=== PATIENT | male | born 1945 | race Caucasian/White ===

== ENCOUNTER 2017-01-05 10:48 | Inpatient (IN) ==
[2017-01-05] MEDS ORDERED: *HR* HYDROmorphone (PF) 1 MG/ML SYRINGE IVP ONE (11:02)
--- NOTE | 2017-01-05 11:06 | Emergency Department Note ---
Disposition Clinical Impression: Fall Qualifiers: Encounter type: initial encounter Qualified Code(s): W19.XXXA - Unspecified fall, initial encounter Cellulitis Qualifiers: Site of cellulitis: buttock Qualified Code(s): L03.317 - Cellulitis of buttock Ulcer of skin Qualifiers: Non-pressure ulcer stage: unspecified non-pressure ulcer stage Qualified Code(s ): L98.499 - Non-pressure chronic ulcer of skin of other sites with unspecified severity Disposition: Admitted As Inpatient Condition: Fair Referrals: Estephania Baca SENIOR BENEFITS ANALYST [Primary Care Provider] - Forms: ED Satisfaction Letter Time of Disposition: 12:58 Fall HPI - General Chief Complaint: ED Fall Stated Complaint: Needs MRI/Fall Time Seen by Provider: 01/05/17 10:58 Source: patient Limitations: no limitations Nursing Notes Reviewed: Yes Vital Signs Reviewed: Yes - History of Present Illness HPI Narrative: Patient sustained a mechanical fall approximately 3 weeks ago. He fell backwards striking his sacrum on a wooden step. Since that time he has increased pain necessitating the use of a cane to ambulate. He noticed brown drainage from the affected area. No fevers Pt Subjective Complaint: fall Onset (ago): week(s) Fall From: standing Fall Witnessed: no Place Fall Occurred: home Loss of Consciousness: none Prolonged Down Time?: no Context: tripped/slipped Location of injury: buttocks Severity: severe Quality: aching Associated symptoms (after fall): Reports: other (Foul-smelling brown discharge from the area) - Related Data Home Medications Medication Instructions Recorded Confirmed Atenolol [Tenormin] 25 mg PO DAILY 12/17/15 01/05/17 Calcium Carbonate [Calcium] 500 mg PO DAILY 12/17/15 01/05/17 Gabapentin [Neurontin] 600 mg PO TID 12/17/15 01/05/17 Lisinopril [Zestril] 20 mg PO BID 12/17/15 01/05/17 Oxycodone HCl/Acetaminophen 1 tab PO Q8H PRN 12/17/15 01/05/17 [Percocet 10-325 mg Tablet] Potassium 99 mg PO DAILY 12/17/15 01/05/17 Simvastatin [Zocor] 80 mg PO HS 12/17/15 01/05/17 Budesonide/Formoterol 160/4.5 2 puff IH BIDR 12/18/15 01/05/17 [Symbicort 160/4.5] Nitroglycerin [Nitrostat] 0.4 mg SL AD PRN 01/05/17 01/05/17 Ticagrelor [Brilinta] 90 mg PO BID 01/05/17 01/05/17 clonazePAM [Klonopin] 1 mg PO TID 01/05/17 01/05/17 Previous Rx's Medication Instructions Recorded Aspirin 81 mg PO DAILY #30 tab.chew 12/18/15 Ipratropium/Albuterol Neb [Duoneb] 3 ml IH Q6H PRN #100 inhsol 12/18/15 Allergies Allergy/AdvReac Type Severity Reaction Status Date / Time morphine AdvReac See Verified 12/17/15 18:47 Comments All systems ED: reviewed and negative except as stated. Constitutional: Reports: as per HPI Eyes: Reports: as per HPI ENT ED: Reports: as per HPI Cardiovascular: Reports: as per HPI Respiratory: Reports: as per HPI Gastrointestinal: Reports: as per HPI Genitourinary: Reports: as per HPI Musculoskeletal: Reports: back pain Integumentary: Reports: other (Brown drainage from the area of impact) Neurological: Reports: as per HPI Psychiatric: Reports: as per HPI Endocrine: Reports: as per HPI Hematological/Lymphatic: Reports: as per HPI Allergic/Immunologic: Reports: as per HPI Fall PMH - Past Medical History Medical history: Reports: arthritis, CHF, COPD, hyperlipidemia, hypertension, myocardial infarction Surgical history: Reports: angioplasty/stent Psychiatric history: Reports: anxiety, panic disorder, PTSD - Social History Smoking Status: Current every day smoker Alcohol use: Reports: none Drug use: Reports: none Physical Exam In the side lying position. Appears uncomfortable - General Limitations: no limitations General appearance: alert - Head Head exam: atraumatic - Eye Eye exam: Present: normal appearance - ENT ENT exam: normal exam - Neck Neck exam: Present: normal inspection, full ROM - Chest Chest inspection: Present: normal inspection, symmetric chest wall rise - Respiratory Respiratory exam: Present: normal lung sounds bilaterally - Cardiovascular Cardiovascular exam: Present: regular rate, normal rhythm, normal heart sounds - Rectal Exam Rectal exam: Present: deferred - Extremities Exam Extremities exam: Present: normal inspection - Back Exam Back exam: Present: other (5 cm x 5 cm ulcerative lesion between his gluteal fold. Necrotic tissue present. Active brown drainage. Surrounding erythema) - Neurological Exam Neurological exam: Present: alert, oriented X3, CN II-XII intact - Psychiatric Psychiatric exam: Present: normal affect, normal mood - Skin Skin exam: Present: warm, dry Course Course Narrative: Patient presents with drainage from his buttocks at the site of impact from a fall several weeks ago. The patient has an open lesion concerning for cellulitis and an open abscess. CT scan ordered to evaluate for depth of lesion. - Consultations Consultation #1: Case d/w Dr. Tucker Vital Signs Temperature 97.7 F 01/05/17 10:49 Pulse Rate 82 01/05/17 10:49 Respiratory Rate 18 01/05/17 10:49 Blood Pressure 122/52 01/05/17 10:49 O2 Sat by Pulse Oximetry 96 01/05/17 10:49 Temperature 97.7 F 01/05/17 10:49 Pulse Rate 78 01/05/17 12:21 Respiratory Rate 16 01/05/17 12:21 Blood Pressure 153/51 01/05/17 12:21 O2 Sat by Pulse Oximetry 98 01/05/17 12:21 Oxygen Delivery Oxygen Delivery Room Air Fall - Lab Data Lab results reviewed: Yes I reviewed the patient's lab results. Result diagrams: 01/05/17 11:25 01/05/17 11:30 Lab Results 01/05/17 01/05/17 Range/Units 11:25 11:30 WBC 9.2 (4.3-11.1) K/mcL RBC 4.34 (4.19-5.50) M/mcL Hgb 13.7 (12.9-16.9) g/dL Hct 41.7 (37.5-50.1) % MCV 96.1 (83.0-100.0) fL MCH 31.6 (28.0-33.3) pg MCHC 32.9 (31.6-35.5) g/dL RDW 14.0 (11.5-14.5) % Plt Count 395 (140-400) K/mcL MPV 10.6 (9.4-12.4) fL Immature Gran % 0.4 (0-4) % Seg Neutrophils % 66.3 % Lymphocytes % 19.5 % Monocytes % 11.4 % Eosinophils % 2.0 % Basophils % 0.4 % Neutrophils # 6.1 (1.6-8.9) K/mcL Lymphocytes # 1.8 (0.6-4.6) K/mcL Monocytes # 1.1 (0.0-1.3) K/mcL Eosinophils # 0.2 (0.0-0.6) K/mcL Basophils # 0.0 (0.0-0.2) K/mcL Sodium 133 L (136-145) mEq/L Potassium 4.6 H (3.5-4.5) mEq/L Chloride 99 (98-109) mEq/L Carbon Dioxide 27 (19-29) mEq/L BUN 12 (8-26) mg/dL Creatinine 0.87 (0.72-1.25) mg/dL Est GFR ( Amer) > 60 (> 60) Est GFR (Non-Af Amer) > 60 (> 60) BUN/Creatinine Ratio 14 (6-26) Glucose 101 H (70-99) mg/dL Calculated Osmolality 276 L (280-300) Calcium 9.4 (8.6-10.8) mg/dL Total Bilirubin 0.6 (0.2-1.2) mg/dL AST 13 (5-34) Units/L ALT 11 (0-55) Units/L Alkaline Phosphatase 81 (38-126) Units/L Serum Total Protein 6.7 (6.0-8.3) g/dL Albumin 2.8 L (3.5-5.0) g/dL Globulin 3.9 H (2.4-3.5) g/dL Albumin/Globulin Ratio 0.7 L (1.1-2.2) - Radiology Data Radiology results reviewed: Yes I reviewed the patient's radiology results.
[2017-01-05 11:38] LABS: Basophils % 0.4 %; Eosinophils # 0.2 K/mcL (0.0-0.6); Hematocrit 41.7 % (37.5-50.1); Hemoglobin 13.7 g/dL (12.9-16.9); Immature Granulocytes % 0.4 % (0-4); Lymphocytes # 1.8 K/mcL (0.6-4.6); Lymphocytes % 19.5 %; Mean Corpuscular HGB Conc 32.9 g/dL (31.6-35.5); Mean Corpuscular Hemoglobin 31.6 pg (28.0-33.3); Mean Corpuscular Volume 96.1 fL (83.0-100.0); Mean Platelet Volume 10.6 fL (9.4-12.4); Monocytes # 1.1 K/mcL (0.0-1.3); Monocytes % 11.4 %; Neutrophils # 6.1 K/mcL (1.6-8.9); Platelet Count 395 K/mcL (140-400); Red Blood Count 4.34 M/mcL (4.19-5.50); Segmented Neutrophils % 66.3 %
[2017-01-05 11:51] LABS: Alanine Aminotransferase 11 Units/L (0-55); Albumin 2.8 g/dL (3.5-5.0); Albumin/Globulin Ratio 0.7 (1.1-2.2); Alkaline Phosphatase 81 Units/L (38-126); Aspartate Amino Transferase 13 Units/L (5-34); BUN/Creatinine Ratio 14 (6-26); Bilirubin,Total 0.6 mg/dL (0.2-1.2); Blood Urea Nitrogen 12 mg/dL (8-26); Calcium 9.4 mg/dL (8.6-10.8); Carbon Dioxide 27 mEq/L (19-29); Chloride 99 mEq/L (98-109); Globulin 3.9 g/dL (2.4-3.5); Glucose 101 mg/dL (70-99); Osmolality,Calculated 276 (280-300); Sodium 133 mEq/L (136-145); Total Protein 6.7 g/dL (6.0-8.3); eGFR For African Americans > 60 (> 60); eGFR For Non-African Americans > 60 (> 60)
[2017-01-05 11:54] LABS: Potassium 4.6 mEq/L (3.5-4.5)
[2017-01-05] MEDS ORDERED: Piperacillin/Tazobactam 3.375 GM in D5% in Water (Mini-Bag+) 100 ML IVPB ONE (12:56)
[2017-01-05] MEDS ORDERED: Vancomycin 1,000 MG in D5% in Water 250 ML IVPB ONE (12:56)
--- NOTE | 2017-01-05 13:56 | Event Note ---
Date of Encounter: 01/05/17 Time of Encounter: 13:53 1. Unstageable necrotic sacral pressure ulcer extending to the right gluteal area surrounded by cellulitis Continue vancomycin, start cefepime, send wound blood cultures IV fluids, pain control Dr. Tucker was consulted for possible debridement 2. History of CAD status post stents Continue aspirin, Brilinta and atenolol 3. Hypertension, stable on lisinopril 4. Tobacco use, smoking cessation counseling, nicotine patch Omeprazole for GI prophylaxis and subcutaneous heparin for DVT prophylaxis. The patient will be admitted as inpatient, expected to stay more than 2 midnights. Full code. Time spent on this admission 40 minutes. H&P to be written by KRISTOPHER Ambriz
[2017-01-05] MEDS ORDERED: Naloxone 0.4 MG/ML INJ IVP PRN (14:02)
[2017-01-05] MEDS ORDERED: Ondansetron 4 MG/2 ML VIAL IVP PRN (14:02)
[2017-01-05] MEDS ORDERED: Acetaminophen 325 MG TABLET PO PRN (14:02)
--- NOTE | 2017-01-05 14:20 | Internal Med History&Physical ---
<Melchor Coe H - Last Filed: 01/05/17 15:29> Date of Encounter: 01/05/17 Internal Medicine - H&P: HPI History of present illness: Mr. Perez is a 71 year old male Internal Medicine - H&P: Meds Atenolol [Tenormin] 25 mg PO DAILY 12/17/15 [History] Calcium Carbonate [Calcium] 500 mg PO DAILY 12/17/15 [History] Gabapentin [Neurontin] 600 mg PO TID 12/17/15 [History] Lisinopril [Zestril] 20 mg PO BID 12/17/15 [History] Oxycodone HCl/Acetaminophen [Percocet 10-325 mg Tablet] 1 tab PO Q8H PRN [History] Potassium 99 mg PO DAILY 12/17/15 [History] Simvastatin [Zocor] 80 mg PO HS 12/17/15 [History] Aspirin 81 mg PO DAILY #30 tab.chew 12/18/15 [Rx] Budesonide/Formoterol 160/4.5 [Symbicort 160/4.5] 2 puff IH BIDR 12/18/15 [ History] Ipratropium/Albuterol Neb [Duoneb] 3 ml IH Q6H PRN #100 inhsol 12/18/15 [Rx] Nitroglycerin [Nitrostat] 0.4 mg SL AD PRN 01/05/17 [History] Ticagrelor [Brilinta] 90 mg PO BID 01/05/17 [History] clonazePAM [Klonopin] 1 mg PO TID 01/05/17 [History] Allergies morphine Adverse Reaction (Verified 12/17/15 18:47) See Comments Causes heart rate to drop All Systems PM: A 10-system review of systems was performed and is negative for pertinent findings except as documented above in the HPI. - Constitutional Vitals: Temp Pulse Resp BP Pulse Ox 97.9 F 62 15 124/45 97 01/05/17 15:11 01/05/17 15:11 01/05/17 15:11 01/05/17 15:11 01/05/17 15:11 Internal Med - H&P Results - Labs CBC & Chem 7: 01/05/17 11:25 01/05/17 11:30 - Attending Attestation 1. Unstageable necrotic sacral pressure ulcer extending to the right gluteal area surrounded by cellulitis Continue vancomycin, start cefepime, send wound blood cultures IV fluids, pain control Dr. Tucker was consulted for possible debridement 2. History of CAD status post stents Continue aspirin, Brilinta and atenolol 3. Hypertension, stable on lisinopril 4. Tobacco use, smoking cessation counseling, nicotine patch Omeprazole for GI prophylaxis and subcutaneous heparin for DVT prophylaxis. The patient will be admitted as inpatient, expected to stay more than 2 midnights. Full code. Time spent on this admission 40 minutes. <AmbrizMariia M - Last Filed: 01/05/17 15:31> Date of Encounter: 01/05/17 Time of Encounter: 14:15 Assessment and Plan (1) Ulcer of skin Current visit: Yes Status: Acute Patient with right medial gluteal unstageable pressure ulcer after suffering a fall several weeks ago. Ulcer has necrotic tissue, surrounding erythema and foul-smelling purulent drainage. CT of the Pelvis showed soft tissue defect of medial right gluteal region extending into the deep soft tissues almost a coccyx , no abscess or drainable fluid collection, induration likely cellulitis. Dr. Tucker of surgery consulted for possible debridement IV cefepime and vancomycin IV fluids 0.9 normal saline at 70 mL per hour [place] and Dilaudid when necessary for pain Zofran when necessary for nausea Social work consultation for likely discharge needs. Qualifiers: Non-pressure ulcer stage: unspecified non-pressure ulcer stage Qualified Code(s): L98.499 - Non-pressure chronic ulcer of skin of other sites with unspecified severity (2) COPD (chronic obstructive pulmonary disease) Current visit: Yes Status: Chronic Patient denies any cough or increased shortness of breath. Not in exacerbation. Continue home dose of budesonide formotorol BID, Duoneb treatments QID PRN. Qualifiers: COPD type: unspecified COPD Qualified Code(s): J44.9 - Chronic obstructive pulmonary disease, unspecified (3) CAD (coronary artery disease) Current visit: Yes Status: Chronic Patient with history of CAD s/p stent placement. Not complaining of any chest pain. Continue home dose of atenolol, aspirin, statin. Qualifiers: Coronary Disease-Associated Artery/Lesion type: eagle artery [place] vs. transplanted heart: eagle heart Associated angina: angina presence unspecified Qualified Code(s): I25.10 - Atherosclerotic heart disease of eagle coronary artery without angina pectoris (4) HTN (hypertension) Current visit: Yes Status: Chronic Continue home dose of lisinopril. Qualifiers: Hypertension type: essential hypertension Qualified Code(s): I10 - Essential (primary) hypertension (5) Smoking Current visit: Yes Status: Chronic Patient continues to smoke 1/2 pack per day. Discussed smoking cessation, patient not interested in quitting at this time. Smoking cessation education and nicotine patch ordered. (6) DVT prophylaxis Current visit: Yes Status: Acute sequential compression devices heparin 5000 SQ TID Internal Medicine - H&P: HPI Chief complaint: wound on right buttock Admitted From: Emergency Dept Plans for Post Hospital Care: Home History of present illness: Mr. Perez is a 71 year old male with COPD, hyperlipidemia, hypertension, coronary artery disease status post stent placement who presented to the emergency department today with complaints of draining ulcer on right buttock. The patient reports that approximately 3 weeks ago he fell backwards and landed on his backside. He had soreness following the injury, which started draining a few days later. Patient reports that he was treating himself with triple antibiotic ointment but at the [employer]. However his wound continued to progress, opening larger and with more foul-smelling drainage to the point where he presented today. Patient reports constant sharp pain, worse with movement and pressure. He denies any fever, chills or sweats. He does report poor appetite, but denies any nausea or vomiting, diarrhea. Evaluation in emergency department revealed normal white blood cell count of 9.2. CT of the pelvis showed a soft tissue defect defect of the medial right gluteal region extending into the deep soft tissues almost to the coccyx, no abscess or drainable fluid collection, surrounding induration likely cellulitis. On exam, patient is alert and oriented, in no acute distress. Heart has regular rate and rhythm, lungs are clear bilaterally to auscultation. Patient's right medial gluteal region has a large open wound with erythema, necrotic tissue, foul smelling purulent drainage. Past Med Surg Social Fam HX - Past Medical History Medical history: arthritis, CHF, COPD, hyperlipidemia, hypertension, myocardial infarction Psychiatric history: anxiety, panic disorder, PTSD - Past Surgical History Surgical History: angioplasty/stent, orthopedic, other (back surgery) - Social History Smoking Status: Current every day smoker Packs per day: 1/2 Smokeless Tobacco Status: No Alcohol use: none Drug use: none - Family History Mother Adopted: No Family Member Ethnicity: Non- Living Status: Age at : 85 Hx Family Cardiac Disorders: Yes Hx Family Cancer: Yes Father Living Status: Age at : 60 Cause of : cerebral hemorrhage All Systems PM: A 10-system review of systems was performed and is negative for pertinent findings except as documented above in the HPI. - Constitutional Constitutional: anorexia, no chills, no fever(s), no night sweats - EENT Eyes: no change in vision, no discharge, no pain, no photophobia Ears: no ear discharge, no ear pain, no tinnitus Nose, mouth and throat: no dysphagia, no nasal discharge, no neck pain, no sore throat - Cardiovascular Cardiovascular ROS IM: no chest pain, no diaphoresis, no dyspnea, no lightheadedness, no palpitations, no syncope - Respiratory Respiratory: no cough, no dyspnea, no wheezing, no excessive phlegm production - Gastrointestinal Gastrointestinal: no abdominal pain, no diarrhea, no hematemesis, no hematochezia, no melena, no nausea, no vomiting - Musculoskeletal Musculoskeletal ROS IM: no numbness, no tingling - Integumentary Integumentary IM: erythema, skin ulcer (right buttock), no rash, no unusual bruising - Neurological Neurological ROS: no confusion, no convulsions, no focal weakness, no numbness, no tingling, no tremor(s) - Hematologic/Lymphatic Hematologic/Lymphatic: no easy bruising - Constitutional Vitals: Temp Pulse Resp BP Pulse Ox 97.7 F 78 16 153/51 98 01/05/17 10:49 01/05/17 12:21 01/05/17 14:12 01/05/17 14:12 01/05/17 12:21 General appearance: Present: A&O X 3, pleasant, no acute distress - Head Head exam: Present: atraumatic, normocephalic - Eye Eye exam: Present: PERRL, conjuntiva pink, sclera anicteric Pupils: Present: PERRL - Neck Neck exam general surgery: Present: supple, trachea midline. Absent: lymphadenopathy - Respiratory Respiratory exam: Present: CTAB. Absent: accessory muscle use, rales, rhonchi, wheezes - Cardiovascular Cardiovascular exam: Present: RRR, +S1, +S2. Absent: diastolic murmur, gallop, rubs, systolic murmur - GI/Abdominal GI/Abdominal exam: Present: normal bowel sounds, soft, no peritoneal signs. Absent: distended, tenderness - Extremities Exam Extremities exam: Present: warm, radial pulses palpable and symetrical. Absent : calf tenderness, cyanotic, pedal edema - Neurological Exam Neurological exam: Present: CN II-XII intact, oriented X3, no focal deficits. Absent: facial droop, speech deficit - Skin Additional comments: ulcer on right medial gluteal area with necrotic tissue, surrounding erythema and foul smelling, purulent discharge. Internal Med - H&P Results - Labs CBC & Chem 7: 01/05/17 11:25 01/05/17 11:30 Labs: All Lab Results (24 Hours) 01/05/17 01/05/17 Range/Units 11:25 11:30 WBC 9.2 (4.3-11.1) K/mcL RBC 4.34 (4.19-5.50) M/mcL Hgb 13.7 (12.9-16.9) g/dL Hct 41.7 (37.5-50.1) % MCV 96.1 (83.0-100.0) fL MCH 31.6 (28.0-33.3) pg MCHC 32.9 (31.6-35.5) g/dL RDW 14.0 (11.5-14.5) % Plt Count 395 (140-400) K/mcL MPV 10.6 (9.4-12.4) fL Immature Gran % 0.4 (0-4) % Seg Neutrophils % 66.3 % Lymphocytes % 19.5 % Monocytes % 11.4 % Eosinophils % 2.0 % Basophils % 0.4 % Neutrophils # 6.1 (1.6-8.9) K/mcL Lymphocytes # 1.8 (0.6-4.6) K/mcL Monocytes # 1.1 (0.0-1.3) K/mcL Eosinophils # 0.2 (0.0-0.6) K/mcL Basophils # 0.0 (0.0-0.2) K/mcL Sodium 133 L (136-145) mEq/L Potassium 4.6 H (3.5-4.5) mEq/L Chloride 99 (98-109) mEq/L Carbon Dioxide 27 (19-29) mEq/L BUN 12 (8-26) mg/dL Creatinine 0.87 (0.72-1.25) mg/dL Est GFR ( Amer) > 60 (> 60) Est GFR (Non-Af Amer) > 60 (> 60) BUN/Creatinine Ratio 14 (6-26) Glucose 101 H (70-99) mg/dL Calculated Osmolality 276 L (280-300) Calcium 9.4 (8.6-10.8) mg/dL Total Bilirubin 0.6 (0.2-1.2) mg/dL AST 13 (5-34) Units/L ALT 11 (0-55) Units/L Alkaline Phosphatase 81 (38-126) Units/L Serum Total Protein 6.7 (6.0-8.3) g/dL Albumin 2.8 L (3.5-5.0) g/dL Globulin 3.9 H (2.4-3.5) g/dL Albumin/Globulin Ratio 0.7 L (1.1-2.2) - Diagnostic Studies CT scan - pelvis Additional comments: Pelvis CT 01/05/17 11:03 IMPRESSION: 1. Soft tissue defect of the medial right gluteal region, which extends from the skin into the deep soft tissues, almost to the level of the coccyx. This may be a postsurgical defect or sinus tract. No abscess or drainable fluid collection. Surrounding induration is likely due to cellulitis. 2. No acute osseous abnormality of the pelvis. No evidence of osteomyelitis. D/ / 01/05/2017 13:31:06 Aayush Carvalho MD / Tamiko Salcedo Interpreting Provider: Aayush Carvalho MD
[2017-01-05] MEDS ORDERED: Ipratropium/Albuterol Neb 3 ML IH PRN (16:00)
[2017-01-05] MEDS: *HR* OxyCODONE/APAP 10/325 TABLET PO PRN (16:12)
[2017-01-05] MEDS: Gabapentin 300 MG CAPSULE PO SCH ×2 (16:12→20:42)
[2017-01-05] MEDS: clonazePAM 1 MG TABLET PO SCH ×2 (16:13→20:42)
[2017-01-05] MEDS: Nicotine 14 MG PATCH.TD24 TD SCH (16:13)
--- NOTE | 2017-01-05 16:21 | General Surgery Consult Note ---
Date of Encounter: 01/05/17 Time of Encounter: 15:50 History of Present Illness Consult date: 01/05/17 Requesting physician: John Dunham History of present illness: 71-year-old male presents to the emergency department in acute distress secondary to a necrotic sacral wound. The patient describes falling 2-3 weeks ago striking his sacrum on a wooden step. Since that time he has had pain and swelling but over the past few days he has developed necrosis with breakdown and drainage of the wound. The patient presents today to [facility] ED for further evaluation and treatment. Surgical consultation was placed for this necrotic sacral wound. Past medical history: CAD, with previous ND times 3; the patient describes being hospitalized [facility] with a severe ND approx 1 month ago for which a coronary stent was placed. The patient also has a history of hypertension, CHF, COPD, hyperlipidemia, anxiety, and unspecified panic disorder , PTSD. and continued tobacco use Surgical history:placement of a coronary stent as described; back surgery Allergies: Morphine - exposure causing bradycardia Medications: Atenolol 25 mg by mouth daily Calcium carbonate 500 mg by mouth daily Gabapentin 600 mg by mouth 3 times a day Lisinopril 20 mg by mouth twice a day Oxycodone/acetaminophen 10/325 one by mouth every 8 hours as needed for pain (chronic back pain) Potassium 99 mg by mouth daily Simvastatin 80 mg by mouth daily at bedtime Aspirin 81 mg by mouth daily Budesonide/Formoterol 160/4.5 2 puffs twice a day Ipratropium/albuterol (DuoNeb) 3 mL inhaled every 6 hours as needed for shortness of breath or dyspnea Nitroglycerin 0.4 mg sublingually as directed as needed for chest pain Ticagrelor (brilinta) 90 mg by mouth twice a day Clonazepam 1 mg by mouth 3 times a day Social history: Patient admits to half a pack per day for the last 56 years (he started smoking at age 15); he also consumed alcohol starkly but none in the last 9 years; patient denies any illicit drug use Physical examination: Elderly patient who appears older than his stated age, lying on his left side. The patient is afebrile, currently 97.9, pulse 62, blood pressure 124/45, respiratory rate 15. SPO2 on room air 97%. Skin: Warm, no obvious jaundice; sclera were anicteric Lungs: Clear bilaterally though bibasilar breath sounds are diminished Cardiac: Regular rate, no appreciable murmur Abdomen: Soft, tender, no obvious intra-abdominal masses. Active bowel sounds. Sacrum: Large, approximate 4 cm, necrotic, ulcerated wound each per CT, extends to the presacral fascia. Possible osteomyelitis cannot be excluded Extremities: No obvious clubbing cyanosis or edema. Laboratories: White count 9.2, hemoglobin 13.7, hematocrit 41.7, platelet count 395,000. Sodium 133, potassium 4.6, BUN 12, creatinine 0.87. CT: Personally reviewed with [facility]. Findings include: Advanced degenerative disc disease involving the lower spine; large soft tissue defect extending from the skin of the medial right gluteal region almost to the level of the coccyx with surrounding induration consistent with cellulitis. No acute osseous abnormality of the pelvis. Impression: 71-year-old with a large necrotic, traumatic sacral wound. The patient gives a significant cardiac history with a severe ND in the last month. The patient will require operative debridement and this is scheduled for the a.m. in the interval, Eckard's from Iain Burns should be obtained as well as a cardiac assessment per [facility] preferrably prior to surgical debridement. The surgical debridement was discussed with the patient. Possible application of a Wound Vac is being considered. Risks include hemorrhage, infection, failure to heal, Osteomyelitis, cardiac dysrhythmia and recurrent ND. A recurrent ND could result in the patient's . Patient expressed understanding. Consent has been obtained. Past Med Surg Social Fam HX - Past Medical History Medical history: arthritis, CHF, COPD, hyperlipidemia, hypertension, myocardial infarction Psychiatric history: anxiety, panic disorder, PTSD - Past Surgical History Surgical History: angioplasty/stent, orthopedic, other (back surgery) - Social History Smoking Status: Current every day smoker Packs per day: 1/2 Smokeless Tobacco Status: No Alcohol use: none Drug use: none - Family History Father Living Status: Age at : 60 Cause of : cerebral hemorrhage Mother Adopted: No Family Member Ethnicity: Non- Living Status: Age at : 85 Hx Family Cardiac Disorders: Yes Hx Family Cancer: Yes Medications and Allergies Atenolol [Tenormin] 25 mg PO DAILY 12/17/15 [History] Calcium Carbonate [Calcium] 500 mg PO DAILY 12/17/15 [History] Gabapentin [Neurontin] 600 mg PO TID 12/17/15 [History] Lisinopril [Zestril] 20 mg PO BID 12/17/15 [History] Oxycodone HCl/Acetaminophen [Percocet 10-325 mg Tablet] 1 tab PO Q8H PRN [History] Potassium 99 mg PO DAILY 12/17/15 [History] Simvastatin [Zocor] 80 mg PO HS 12/17/15 [History] Aspirin 81 mg PO DAILY #30 tab.chew 12/18/15 [Rx] Budesonide/Formoterol 160/4.5 [Symbicort 160/4.5] 2 puff IH BIDR 12/18/15 [ History] Ipratropium/Albuterol Neb [Duoneb] 3 ml IH Q6H PRN #100 inhsol 12/18/15 [Rx] Nitroglycerin [Nitrostat] 0.4 mg SL AD PRN 01/05/17 [History] Ticagrelor [Brilinta] 90 mg PO BID 01/05/17 [History] clonazePAM [Klonopin] 1 mg PO TID 01/05/17 [History] Allergies morphine Adverse Reaction (Verified 12/17/15 18:47) See Comments Causes heart rate to drop Review of Systems All systems PM: A 10-system review of systems was performed and is negative for pertinent findings except as documented above in the HPI. General Surgery Exam Initial Vital Signs Temp Pulse Resp BP Pulse Ox 97.7 F 82 18 122/52 96 01/05/17 10:49 01/05/17 10:49 01/05/17 10:49 01/05/17 10:49 01/05/17 10:49 Exam Initial Vital Signs Temp Pulse Resp BP Pulse Ox 97.7 F 82 18 122/52 96 01/05/17 10:49 01/05/17 10:49 01/05/17 10:49 01/05/17 10:49 01/05/17 10:49 Results - Labs 01/05/17 11:25 01/05/17 11:30 Abnormal lab results Sodium 133 mEq/L (136-145) L 01/05/17 11:30 Potassium 4.6 mEq/L (3.5-4.5) H 01/05/17 11:30 Glucose 101 mg/dL (70-99) H 01/05/17 11:30 Calculated Osmolality 276 (280-300) L 01/05/17 11:30 Albumin 2.8 g/dL (3.5-5.0) L 01/05/17 11:30 Globulin 3.9 g/dL (2.4-3.5) H 01/05/17 11:30 Albumin/Globulin Ratio 0.7 (1.1-2.2) L 01/05/17 11:30 All other labs normal. Consult Discharge Plan - Plan Referrals: Estephania Baca, MARKETING PROFESSIONAL [Primary Care Provider] -
[2017-01-05] MEDS: 0.9 % Sodium Chloride 1,000 ML IVC SCH (16:24)
[2017-01-05] MEDS: Cefepime HCl 1,000 MG in D5% in Water (Mini-Bag+) 100 ML IVPB SCH ×2 (16:25→16:28)
--- NOTE | 2017-01-05 19:51 | Anesthesia Evaluation PreOp ---
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: Other (anxiety, ptsd) Other Medical History: Denies Any Significant HX Anesthesia History: No Prior Anesthetic Complications, Past Anesthesia (lumbar) Alcohol Use: none Drug use: none Medications and Allergies Atenolol [Tenormin] 25 mg PO DAILY 12/17/15 [History] Calcium Carbonate [Calcium] 500 mg PO DAILY 12/17/15 [History] Gabapentin [Neurontin] 600 mg PO TID 12/17/15 [History] Lisinopril [Zestril] 20 mg PO BID 12/17/15 [History] Oxycodone HCl/Acetaminophen [Percocet 10-325 mg Tablet] 1 tab PO Q8H PRN [History] Potassium 99 mg PO DAILY 12/17/15 [History] Simvastatin [Zocor] 80 mg PO HS 12/17/15 [History] Aspirin 81 mg PO DAILY #30 tab.chew 12/18/15 [Rx] Budesonide/Formoterol 160/4.5 [Symbicort 160/4.5] 2 puff IH BIDR 12/18/15 [ History] Ipratropium/Albuterol Neb [Duoneb] 3 ml IH Q6H PRN #100 inhsol 12/18/15 [Rx] Nitroglycerin [Nitrostat] 0.4 mg SL AD PRN 01/05/17 [History] Ticagrelor [Brilinta] 90 mg PO BID 01/05/17 [History] clonazePAM [Klonopin] 1 mg PO TID 01/05/17 [History] Allergies morphine Adverse Reaction (Verified 12/17/15 18:47) See Comments Causes heart rate to drop - Meds/Allergy Pre-op Review Medications Reviewed: Yes Allergies Reviewed: Yes Beta Blockers on Current Med List: Yes Anesthesia Results - Labs 01/05/17 11:25 01/05/17 11:30 - Imaging EKG: report reviewed (sr 12/27) Anesthesia Exam no vs in system over past four hrs Height: 1.78 Weight: 58 NPO (# of Hours): >8 - HEENT Pupil (Motor): Pupils equal, EOMI Mallampati: I Teeth: Edentulous Oral Opening: Greater than 3 - FOOD SERVICE LEAD LOC: Oriented FOOD SERVICE LEAD Motor: Normal RUE, Normal LUE, Normal RLE, Normal LLE, Normal Face FOOD SERVICE LEAD Sensory: Normal: RUE, LUE, RLE, LLE, Face - Cardiac Rhythm: Regular Murmur: None - Pulmonary Breath Sounds: bilateral Clear Respiratory Effort: Symmetrical Anesthesia Assess/Plan ASA Score: 3 Modified [place] Scale for Level of Consciousness: Cooperative, oriented, and tranquil Anesthetic Plan: General Monitoring Plan: Standard Monitors Recovery Plan: PACU
[2017-01-05] MEDS: *HR* Ticagrelor 90 MG TABLET PO SCH (20:42)
[2017-01-05] MEDS: Lisinopril 20 MG TABLET PO SCH (20:42)
[2017-01-05] MEDS: *HR* HYDROmorphone (PF) 1 MG/ML SYRINGE IVP PRN (20:43)
[2017-01-05] MEDS: Budesonide/Formoterol 160/4.5 MDI IH SCH (21:17)
[2017-01-05] MEDS: *HR* Heparin 5,000 UNIT/ML VIAL SQ SCH (22:23)
[2017-01-06] MEDS: *HR* OxyCODONE/APAP 10/325 TABLET PO PRN (01:22)
[2017-01-06 04:29] LABS: Basophils # 0.1 K/mcL (0.0-0.2); Basophils % 0.6 %; Eosinophils # 0.2 K/mcL (0.0-0.6); Eosinophils % 2.3 %; Hematocrit 39.2 % (37.5-50.1); Hemoglobin 12.9 g/dL (12.9-16.9); Immature Granulocytes % 0.5 % (0-4); Lymphocytes # 2.2 K/mcL (0.6-4.6); Lymphocytes % 25.3 %; Mean Corpuscular HGB Conc 32.9 g/dL (31.6-35.5); Mean Corpuscular Hemoglobin 31.5 pg (28.0-33.3); Mean Corpuscular Volume 95.8 fL (83.0-100.0); Monocytes # 0.9 K/mcL (0.0-1.3); Monocytes % 10.5 %; Neutrophils # 5.2 K/mcL (1.6-8.9); Platelet Count 344 K/mcL (140-400); Red Blood Count 4.09 M/mcL (4.19-5.50); Segmented Neutrophils % 60.8 %
[2017-01-06 04:49] LABS: BUN/Creatinine Ratio 16 (6-26); Blood Urea Nitrogen 13 mg/dL (8-26); Calcium 8.7 mg/dL (8.6-10.8); Carbon Dioxide 25 mEq/L (19-29); Chloride 105 mEq/L (98-109); Glucose 103 mg/dL (70-99); Osmolality,Calculated 284 (280-300); Sodium 137 mEq/L (136-145); eGFR For African Americans > 60 (> 60); eGFR For Non-African Americans > 60 (> 60)
[2017-01-06] MEDS: Cefepime HCl 1,000 MG in D5% in Water (Mini-Bag+) 100 ML IVPB SCH (05:41)
[2017-01-06] MEDS: *HR* Heparin 5,000 UNIT/ML VIAL SQ SCH ×3 (05:41→22:03)
[2017-01-06] MEDS: 0.9 % Sodium Chloride 1,000 ML IVC SCH ×2 (06:00→09:05)
[2017-01-06] MEDS ORDERED: Aspirin 81 MG TAB.CHEW PO SCH (09:00)
[2017-01-06] MEDS: clonazePAM 1 MG TABLET PO SCH ×3 (09:56→19:56)
[2017-01-06] MEDS: Gabapentin 300 MG CAPSULE PO SCH ×3 (09:56→19:58)
[2017-01-06] MEDS: *HR* Ticagrelor 90 MG TABLET PO SCH ×2 (09:56→19:56)
[2017-01-06] MEDS: *HR* HYDROmorphone (PF) 1 MG/ML SYRINGE IVP PRN (09:57)
[2017-01-06] MEDS: Nicotine 14 MG PATCH.TD24 TD SCH (09:57)
[2017-01-06] MEDS: Lisinopril 20 MG TABLET PO SCH (10:00)
--- NOTE | 2017-01-06 10:06 | Internal Med Progress Note ---
Date of Encounter: 01/06/17 Time of Encounter: 09:30 - Assessment and plan (1) Cellulitis Current Visit: Yes Status: Acute Assessment and plan: Continue broad-spectrum IV antibiotics. Remaining plan as below. Qualifiers: Site of cellulitis: buttock Qualified Code(s): L03.317 - Cellulitis of buttock (2) Decubitus ulcer Current Visit: Yes Status: Acute Assessment and plan: Patient is an unreliable historian. Review of records from [facility] shows that patient had an admission worse the end of October 2016 for inferior wall IN and after receiving stent placement, left AGAINST MEDICAL ADVICE and per family, has been lying in bed since then. According to the patient, he sustained a fall about 2-3 weeks back after which he began experiencing pain and swelling in his right buttock area but did not seek medical attention. Patient presents with big sized, deep right buttock decubitus ulcer. Pelvic CT shows wounds extending almost to coccyx, possible sinus tract, no focal abscess. Surgery has been consulted for possible debridement under general anesthesia. Follow-up blood and wound cultures and continue IV vancomycin and cefepime for now. Pain control with when necessary IV Dilaudid. Reviewed medical records from [facility]-echocardiogram done in October 2016 shows 50% ejection fraction, severe inferior wall left ventricular hypokinesis and moderate inferoseptal hypokinesis and decreased function of the right ventricle. Patient was noted to have undergone left heart catheterization revealing 100% stent thrombosis of RCA and received percutaneous balloon angioplasty and bare-metal stent. He was also noted to have cardiogenic shock and bradycardia and received a temporary pacemaker. Patient is moderate perioperative risk given his questionable medical compliance and recent inferior IN. Qualifiers: Pressure ulcer location: buttock Pressure ulcer stage: unstageable Laterality: right Qualified Code(s): L89.310 - Pressure ulcer of right buttock , unstageable (3) Tobacco abuse Current Visit: Yes Status: Chronic Assessment and plan: Patient is not motivated to quit smoking at this time. Continue nicotine transdermal patch. (4) CAD (coronary artery disease) Current Visit: Yes Status: Chronic Assessment and plan: History of recent inferior wall IN status post bare metal stent placement. Cardiology consult appreciated. Continue aspirin, Brilinta, beta devin and statin. Qualifiers: Coronary Disease-Associated Artery/Lesion type: [place] artery [place] vs. transplanted heart: [place] heart Associated angina: without angina Qualified Code(s): I25.10 - Atherosclerotic heart disease of [place] coronary artery without angina pectoris (5) HTN (hypertension) Current Visit: Yes Status: Chronic Assessment and plan: Blood pressure noted to be well controlled. Continue home medications. Qualifiers: Hypertension type: essential hypertension Qualified Code(s): I10 - Essential (primary) hypertension (6) Chronic back pain Current Visit: Yes Status: Chronic Qualifiers: Back pain location: back pain in unspecified location Back pain laterality : unspecified Qualified Code(s): M54.9 - Dorsalgia, unspecified; G89.29 - Other chronic pain (7) Hyperlipidemia Current Visit: Yes Status: Chronic Qualifiers: Hyperlipidemia type: unspecified Qualified Code(s): E78.5 - Hyperlipidemia , unspecified (8) PTSD (post-traumatic stress disorder) Current Visit: Yes Status: Chronic (9) COPD (chronic obstructive pulmonary disease) Current Visit: Yes Status: Chronic Assessment and plan: Not in acute exacerbation. Continue when necessary bronchodilators and supplemental oxygen. Continue inhaled corticosteroids. Qualifiers: COPD type: unspecified COPD Qualified Code(s): J44.9 - Chronic obstructive pulmonary disease, unspecified - Subjective Interval history: Very irritable, demanding his pain medications and anxiolytics; reports severe low back and buttock pain due to his wound. Reports recent hospitalization for IN, at [facility] when he received coronary stents; questionable medical compliance and reportedly left AMA from [facility], per his family; - Constitutional Vitals: Temp Pulse Resp BP Pulse Ox 97.7 F 60 18 108/52 96 01/06/17 07:40 01/06/17 07:40 01/06/17 07:40 01/06/17 07:40 01/06/17 07:40 General appearance: Present: cachectic, mild distress, A&O X 3 - Respiratory Respiratory exam: Present: CTAB. Absent: accessory muscle use, rales, rhonchi, wheezes - Cardiovascular Cardiovascular exam: Present: RRR, +S1, +S2. Absent: diastolic murmur, gallop, rubs, systolic murmur - GI/Abdominal GI/Abdominal exam: Present: normal bowel sounds, soft, no peritoneal signs. Absent: distended, tenderness - Back Exam Additional comments: Right medial gluteal area- big sized 8*10cm unstageable decubitus ulcer with necrosis and very foul-smelling yellowish discharge; surrounding mild cellulitis - Neurological Exam Neurological exam: Present: CN II-XII intact, oriented X3, no focal deficits. Absent: pronater drift, facial droop, speech deficit Internal Medicine: Result - Labs CBC & Chem 7: 01/06/17 03:52 01/06/17 03:52 Labs: Short CBC 01/06/17 Range/Units 03:52 WBC 8.5 (4.3-11.1) K/mcL Hgb 12.9 (12.9-16.9) g/dL Hct 39.2 (37.5-50.1) % Plt Count 344 (140-400) K/mcL Neutrophils # 5.2 (1.6-8.9) K/mcL BMP 01/06/17 03:52 Sodium 137 Potassium 4.0 Chloride 105 Carbon Dioxide 25 BUN 13 Creatinine 0.79 Glucose 103 H Calcium 8.7 Consult Discharge Plan - Plan Referrals: Estephania Baca COMPUTING SYSTEMS MECHANIC [Primary Care Provider] -
[2017-01-06] MEDS ORDERED: Vancomycin 750 MG in D5% in Water 250 ML IVPB SCH (10:30)
[2017-01-06] MEDS: Budesonide/Formoterol 160/4.5 MDI IH SCH ×2 (10:56→23:21)
[2017-01-06] MEDS ORDERED: VANCOMYCIN IVPB SCH (11:00)
[2017-01-06] MEDS ORDERED: WATER IVPB SCH (11:00)
[2017-01-06] MEDS ORDERED: D5 IVPB SCH (11:00)
--- NOTE | 2017-01-06 11:14 | Cardiology Consult Note ---
Date of Encounter: 01/06/17 Time of Encounter: 11:10 Assessment and Plan (1) Pre-operative cardiovascular examination Current Visit: Yes Status: Acute STEMI at [facility] 11/06/16 complicated by cardiogenic shock and complete heart block with severe bradycardia (resolved after revascularization)--[facility] s/p successful aspiration and PCI of RCA (stent thrombosis) with BMS. Pt saw Shannon Noe CNP in cardiology as outpt yesterday. He reports compliance with ASA and Brilinta--recommend minimum of 4-6 weeks uninterrupted, ideally 4-6 months. Pt denies chest pain or dyspnea, is euvolemic on exam. Echo 10/2016 EF 50% at [facility]. Would recommend continuing DAPT throughout perioperative period. Pt needs debridement of necrotic sacral decubitus ulcer under general anesthesia. Pt is acceptable intermediate risk to proceed with debridement. Will obtain EKG. No further cardiac testing warranted. Anticipate sign off once seen and evaluated by Dr. Nicholas. (2) CAD (coronary artery disease) Current Visit: Yes Status: Chronic STEMI at [facility] 11/06/16 complicated by cardiogenic shock and complete heart block with severe bradycardia (resolved after revascularization)--[facility] s/p successful aspiration and PCI of RCA (stent thrombosis) with BMS. Continue DAPT (ASA and Brilinta) uninterrupted x 4-6 weeks, ideally 4-6 months. Continue BB, Statin. Lisinopril was stopped yesterday as outpt, which is currently still continued. Will see if BP will tolerate a reduced Lisinopril dose. EF 50% 10/2016. Qualifiers: Coronary Disease-Associated Artery/Lesion type: [place] artery [place] vs. transplanted heart: [place] heart Associated angina: without angina Qualified Code(s): I25.10 - Atherosclerotic heart disease of [place] coronary artery without angina pectoris (3) Tobacco abuse Current Visit: Yes Status: Chronic Smoking cessation counseling given. Discussion w patient/family: The assessment and plan as outlined above was discussed with the patient and/or family members who expressed understanding and agreement. All questions were answered. Thank you for involving us in the care of your patient. Please call with any questions. I will discuss all the above with Dr. Nicholas and make changes as necessary. History of Present Illness Consult date: 01/06/17 Requesting physician: Jeanette Aburto Consult reason: pre-op risk stratification Chief complaint: painful, drainin sacral ulcer History of present illness: Mr. Perez is a 71 year old male with PMH of STEMI at [facility] 11/06/16 complicated by cardiogenic shock and complete heart block with severe bradycardia (resolved after revascularization)--[facility] s/p successful aspiration and PCI of RCA (stent thrombosis) with BMS. Past medical history significant for PTSD/anxiety, CAD s/ p [place], PCI, COPD, HTN, and tobacco use. He saw Shannon Noe NP in cardiology yesterday for follow-up. He went to ED after due to a painful, foul smelling, draining sacral decubitus ulcer. Cardiology has been consulted for pre- operative risk stratification as pt needs debridement under general anesthesia. Pt reports he has been compliant with his ASA and Brilinta and has not missed any doses. He denies chest pain or dyspnea, denies lower extremity edema. Prior CV testing includes: [facility] 03/2012: patent proximal-mid RCA stent; patent pLAD stent; otherwise non- obstructive CAD. [facility] 03/2012: EF 55%, inferobasal hypokinesis TTE 12/18/15: EF 55%, hypokinesis of the basal inferior and basal inferolateral pagan, moderate LVDD, mildly dilated left atrium, moderate AR. TTE 11/07/15: EF 50%, moderate cLVH, severe hypokinesis of entire inferior wall and mild hypokinesis of inferoseptal wall, mild , mild MS [facility] 11/06/16: occluded RCA d/t stent thrombosis; successful thrombosis aspiration and PCI of RCA with BMS; otherwise mild, non-obstructive CAD. Past Med Surg Social Fam HX - Past Medical History Medical history: arthritis, CHF, COPD, coronary artery disease, hyperlipidemia, hypertension, myocardial infarction Psychiatric history: anxiety, panic disorder, PTSD - Past Surgical History Surgical History: angioplasty/stent, orthopedic, other (back surgery) - Social History Smoking Status: Current every day smoker Packs per day: 1/2 Smokeless Tobacco Status: No Alcohol use: none Drug use: none - Family History Father Living Status: Age at : 60 Cause of : cerebral hemorrhage Mother Adopted: No Family Member Ethnicity: Non- Living Status: Age at : 85 Hx Family Cardiac Disorders: Yes Hx Family Cancer: Yes Medications and Allergies Atenolol [Tenormin] 25 mg PO DAILY 12/17/15 [History] Calcium Carbonate [Calcium] 500 mg PO DAILY 12/17/15 [History] Gabapentin [Neurontin] 600 mg PO TID 12/17/15 [History] Lisinopril [Zestril] 20 mg PO BID 12/17/15 [History] Oxycodone HCl/Acetaminophen [Percocet 10-325 mg Tablet] 1 tab PO Q8H PRN [History] Potassium 99 mg PO DAILY 12/17/15 [History] Simvastatin [Zocor] 80 mg PO HS 12/17/15 [History] Aspirin 81 mg PO DAILY #30 tab.chew 12/18/15 [Rx] Budesonide/Formoterol 160/4.5 [Symbicort 160/4.5] 2 puff IH BIDR 12/18/15 [ History] Ipratropium/Albuterol Neb [Duoneb] 3 ml IH Q6H PRN #100 inhsol 12/18/15 [Rx] Nitroglycerin [Nitrostat] 0.4 mg SL AD PRN 01/05/17 [History] Ticagrelor [Brilinta] 90 mg PO BID 01/05/17 [History] clonazePAM [Klonopin] 1 mg PO TID 01/05/17 [History] Allergies morphine Adverse Reaction (Verified 12/17/15 18:47) See Comments Causes heart rate to drop All Systems Review: A 10-system review of systems was performed and is negative for pertinent findings except as documented above in the HPI. - Integumentary Integumentary: other (wound/ulcer) Physical Examination Vital Signs, Last 4 Hours Temp Pulse Resp BP Pulse Ox 01/06/17 07:40 97.7 F 60 18 108/52 96 Vital Signs Temp Pulse Resp BP Pulse Ox 01/06/17 11:05 99.5 F 58 20 94/45 94 01/06/17 07:40 97.7 F 60 18 108/52 96 01/06/17 03:44 98.7 F 61 16 121/45 95 01/05/17 21:21 16 93 01/05/17 18:45 97.8 F 58 17 93/42 98 01/05/17 15:11 97.9 F 62 15 124/45 97 01/05/17 14:12 16 153/51 01/05/17 12:21 78 16 153/51 98 Intake and Output 01/05/17 01/06/17 01/06/17 23:59 07:59 15:59 Intake Total 340 / 340 1000 / 1000 0 / 0 Output Total 0 / 0 300 / 300 600 / 600 Balance 340 / 340 700 / 700 -600 / -600 Intake: IV Fluids 100 / 100 1000 / 1000 0.9 % Sodium Chloride 1, 1000 / 1000 000 ML @ 70 mls/hr IVC . [id number] ANAHI Rx#: [id number] Maxipime 1,000 MG In 100 / 100 Dextrose 5% (Minibag+) 100 ML 100 ML @ 200 mls/ hr IVPB Q12HR ANAHI Rx#: [id number] Oral 240 / 240 0 / 0 0 / 0 Output: Urine 0 / 0 300 / 300 600 / 600 Other: Meal Dinner Percent of Meal Consumed 100% Weight 59.2 kg Blood Glucose* 106 88 Patient Weight 01/06/17 23:59 Weight 59.2 kg General: Conversant, No Apparent Distress HEENT: Atraumatic, Normocephaly, Mucus Membranes Moist Neck: No JVD, Normal carotid pulses Cardiac: Reg Rate and Rhythm, Normal S1 and S2, No Murmur Lungs: Normal Breath Sounds, No Wheeze, Rales, Rhonchi Neuro: Alert and responsive, No focal deficits noted Abdomen: Soft, Non-Tender Skin: Other (ulcer documented right sacral area, site not examined) Musculoskeletal: No Chest Wall Tenderness Extremities: No Clubbing, No Cyanosis, No Edema, Normal Pulses Results 01/06/17 03:52 01/06/17 03:52 Lab Results 01/06/17 01/06/17 03:52 03:52 WBC 8.5 Hgb 12.9 Hct 39.2 Plt Count 344 Sodium 137 Potassium 4.0 Chloride 105 Carbon Dioxide 25 BUN 13 Creatinine 0.79 Glucose 103 H Calcium 8.7 Short CBC 01/06/17 01/05/17 Range/Units 03:52 11:25 WBC 8.5 9.2 (4.3-11.1) K/mcL Hgb 12.9 13.7 (12.9-16.9) g/dL Hct 39.2 41.7 (37.5-50.1) % Plt Count 344 395 (140-400) K/mcL Neutrophils # 5.2 6.1 (1.6-8.9) K/mcL BMP 01/06/17 01/05/17 Range/Units 03:52 11:30 Sodium 137 133 L (136-145) mEq/L Potassium 4.0 4.6 H (3.5-4.5) mEq/L Chloride 105 99 (98-109) mEq/L Carbon Dioxide 25 27 (19-29) mEq/L BUN 13 12 (8-26) mg/dL Creatinine 0.79 0.87 (0.72-1.25) mg/dL Glucose 103 H 101 H (70-99) mg/dL Calcium 8.7 9.4 (8.6-10.8) mg/dL Liver Function 01/05/17 Range/Units 11:30 Total Bilirubin 0.6 (0.2-1.2) mg/dL AST 13 (5-34) Units/L ALT 11 (0-55) Units/L Alkaline Phosphatase 81 (38-126) Units/L Albumin 2.8 L (3.5-5.0) g/dL Impressions Pelvis CT 01/05/17 11:03 IMPRESSION: 1. Soft tissue defect of the medial right gluteal region, which extends from the skin into the deep soft tissues, almost to the level of the coccyx. This may be a postsurgical defect or sinus tract. No abscess or drainable fluid collection. Surrounding induration is likely due to cellulitis. 2. No acute osseous abnormality of the pelvis. No evidence of osteomyelitis. D/ / 01/05/2017 13:31:06 Aayush Carvalho MD / Tamiko Salcedo Interpreting Provider: Aayush Carvalho MD Active Medications Acetaminophen (Tylenol) 650 mg PO Q6HR PRN PRN Reason: Mild Pain (1-3) Stop: 07/07/17 14:03 Albuterol/Ipratropium (Duoneb) 3 ml IH [id number] PRN PRN Reason: Shortness Of Breath Stop: 07/07/17 16:01 Aspirin (Aspirin) 81 mg PO DAILY ANAHI Stop: 07/08/17 09:01 Last Admin: 01/06/17 09:56 Dose: Not Given Atenolol (Tenormin) 25 mg PO DAILY [facility] Stop: 07/08/17 09:01 Budesonide/Formoterol Fumarate (Symbicort) 2 puff IH BIDR ANAHI PRN Reason: Protocol Stop: 07/07/17 22:01 Last Admin: 01/06/17 10:56 Dose: 2 puff Clonazepam (Klonopin) 1 mg PO TID [facility] Stop: 07/07/17 15:01 Last Admin: 01/06/17 09:56 Dose: Not Given Docusate Sodium (Colace) 100 mg PO BID PRN PRN Reason: Constipation Stop: 07/07/17 14:03 Gabapentin (Neurontin) 600 mg PO TID [facility] Stop: 07/07/17 15:01 Last Admin: 01/06/17 09:56 Dose: Not Given Heparin Sodium (Porcine) (Heparin) 5,000 unit SQ Q8HCO [facility] Stop: 07/07/17 22:01 Last Admin: 01/06/17 05:41 Dose: 5,000 unit Hydromorphone HCl (Dilaudid) 1 mg IVP Q3HR PRN PRN Reason: Severe Pain (7-10) Stop: 07/07/17 14:03 Last Admin: 01/06/17 09:57 Dose: 1 mg Cefepime HCl 1,000 mg/ (Dextrose) 100 mls @ 200 mls/hr IVPB Q12HR [facility] Stop: 07/07/17 13:52 Last Admin: 01/06/17 05:41 Dose: 200 mls/hr Sodium Chloride (0.9 % Sodium Chloride) 1,000 mls @ 70 mls/hr IVC .[id number] [facility] Stop: 07/07/17 14:16 Last Admin: 01/06/17 09:05 Dose: Not Given Vancomycin HCl 750 mg/ (Dextrose) 250 mls @ 250 mls/hr IVPB Q12H [facility] Stop: 07/08/17 10:31 Lisinopril (Zestril) 20 mg PO BID ANAHI PRN Reason: Protocol Stop: 07/07/17 21:01 Last Admin: 01/06/17 10:00 Dose: Not Given Naloxone HCl (Narcan) 0.4 mg IVP Q2MIN PRN PRN Reason: Opioid Reversal Stop: 07/07/17 14:03 Nicotine (Nicoderm) 14 mg TD DAILY ANAHI Stop: 07/07/17 14:16 Last Admin: 01/06/17 09:57 Dose: 14 mg Omeprazole (Prilosec) 40 mg PO DAILY@0630 ANAHI PRN Reason: Protocol Stop: 07/08/17 06:31 Last Admin: 01/06/17 05:43 Dose: 40 mg Ondansetron HCl (Zofran) 4 mg IVP Q8HR PRN PRN Reason: Nausea And Vomiting Stop: 07/07/17 14:03 Oxycodone/Acetaminophen (Percocet 10/325) 1 each PO Q8H PRN PRN Reason: moderate pain Stop: 07/07/17 13:53 Last Admin: 01/06/17 01:22 Dose: 1 each Simvastatin (Zocor) 80 mg PO HS [facility] Stop: 07/07/17 21:01 Last Admin: 01/05/17 20:42 Dose: 80 mg Ticagrelor (Brilinta) 90 mg PO BID [facility] Stop: 07/07/17 21:01 Last Admin: 01/06/17 09:56 Dose: Not Given - Imaging and Cardiology Echo: report reviewed Cardiac cath: report reviewed Consult Discharge Plan - Plan Referrals: Estephania Baca CNP [Primary Care Provider] -
[2017-01-06] MEDS ORDERED: *HR* Propofol 200 MG/20 ML VIAL IVP ONE (16:44)
[2017-01-06] MEDS ORDERED: *HR* FentaNYL (PF) 100 MCG/2 ML VIAL ONE (16:44)
[2017-01-06] MEDS ORDERED: *HR* HYDROmorphone (PF) 1 MG/ML SYRINGE IVP PRN (17:59)
[2017-01-06] MEDS ORDERED: Ondansetron 4 MG/2 ML VIAL IVP PRN ×2 (17:59→19:07)
--- NOTE | 2017-01-06 18:43 | Operative Note ---
Date of procedure: 01/06/17 Pre-op diagnosis: traumatic, necrotic sacral wound Post-op diagnosis: same Procedure: debride sacral wound, application Wound Vac Complications: none apparent Anesthesia: TOYA Surgeon: Bridger Tucker Estimated blood loss (cc): 5 IV fluids (cc): 400 Specimen: none Condition: stable Disposition: PACU Procedure in Detail: The patient was brought to the operating room where he was placed supine upon the operating room table. The patient was appropriately identified as to person and procedure. The patient was then intubated and anesthetized under the supervision of Dr. Bharath Daly. Once airway was secured, the patient was placed in the left lateral decubitus position. The sacrum and buttocks and wound were prepped and draped in the usual sterile fashion. The wound measured 4 cm in cephalocaudal direction, for a half centimeters side to side and 2 cm deep. Granulation tissue was apparent within this wound. The necrotic tissue was sharply dissected and then the wound was scrubbed with a surgical scrub. The scope was followed by wound irrigation using a pulsatile irrigation system ( Surgi Lav) ) and 3 L sterile saline. A wound VAC using a small sponge was then applied. With appropriate positioning of the dressing leak with a crit was measured to be quite low. The patient was taken to PACU in stable condition. Needle, sponge, and instrument counts were correct at the close of the case.
[2017-01-06] MEDS ORDERED: Ringers Solution, Lactated 1,000 ML IVC SCH (18:45)
--- NOTE | 2017-01-06 19:03 | Anesthesia Evaluation Post Op ---
Date of Encounter: 01/06/17 Time of Encounter: 19:03 - Vital Signs Vital Signs: Vital Signs/O2 Sat, Most Current Temp Pulse Resp BP Pulse Ox 98.3 F 62 18 98/59 98 01/06/17 18:34 01/06/17 18:54 01/06/17 18:54 01/06/17 18:54 01/06/17 18:54 - Lungs Lungs: Clear Ascult./Percussion - Airway Airway: Non-obstructed - Cardiovascular Regular Rate - Mental Status Mental Status: Alert & Oriented, Answers Appropriately - Pain Pain Scale: 5 Pain Scale used: Numeric (1 - 10) - Nausea Vomiting Nausea Vomiting: Not Present - Hydration Hydration: NPO, Has not voided - Discharge PostOp Status: Transfer Patient to floor
[2017-01-06] MEDS ORDERED: Nitroglycerin 0.4 MG TAB.SUBL SL PRN (19:07)
[2017-01-06] MEDS ORDERED: *HR* OxyCODONE/APAP 10/325 TABLET PO PRN (19:07)
[2017-01-06] MEDS ORDERED: Acetaminophen 325 MG TABLET PO PRN (19:07)
[2017-01-06] MEDS ORDERED: Ipratropium/Albuterol Neb 3 ML IH PRN (19:07)
[2017-01-06] MEDS ORDERED: Naloxone 0.4 MG/ML INJ IVP PRN (19:07)
[2017-01-06] MEDS: Ringers Solution, Lactated 1,000 ML IVC SCH (19:58)
[2017-01-06] MEDS ORDERED: Lisinopril 20 MG TABLET PO SCH (21:00)
[2017-01-07] MEDS: *HR* OxyCODONE/APAP 10/325 TABLET PO PRN ×6 (00:05→22:08)
[2017-01-07] MEDS: Vancomycin 750 MG in D5% in Water 250 ML IVPB SCH ×2 (01:35→13:43)
[2017-01-07] MEDS: Ringers Solution, Lactated 1,000 ML IVC SCH (04:17)
[2017-01-07] MEDS: *HR* Heparin 5,000 UNIT/ML VIAL SQ SCH ×3 (04:18→22:08)
[2017-01-07] MEDS: Cefepime HCl 1,000 MG in D5% in Water (Mini-Bag+) 100 ML IVPB SCH ×2 (05:29→18:05)
[2017-01-07 06:31] LABS: Hematocrit 36.2 % (37.5-50.1); Hemoglobin 11.7 g/dL (12.9-16.9); Immature Granulocytes % 0.4 % (0-4); Lymphocytes # 0.8 K/mcL (0.6-4.6); Lymphocytes % 13.8 %; Mean Corpuscular HGB Conc 32.3 g/dL (31.6-35.5); Mean Corpuscular Hemoglobin 31.4 pg (28.0-33.3); Mean Corpuscular Volume 97.1 fL (83.0-100.0); Mean Platelet Volume 11.2 fL (9.4-12.4); Monocytes # 0.2 K/mcL (0.0-1.3); Monocytes % 2.8 %; Neutrophils # 4.5 K/mcL (1.6-8.9); Platelet Count 352 K/mcL (140-400); Red Blood Count 3.73 M/mcL (4.19-5.50); Red Cell Distribution Width 14.3 % (11.5-14.5)
[2017-01-07 06:42] LABS: BUN/Creatinine Ratio 13 (6-26); Blood Urea Nitrogen 13 mg/dL (8-26); Calcium 8.4 mg/dL (8.6-10.8); Carbon Dioxide 26 mEq/L (19-29); Chloride 108 mEq/L (98-109); Glucose 323 mg/dL (70-99); Osmolality,Calculated 297 (280-300); Potassium 4.4 mEq/L (3.5-4.5); Sodium 137 mEq/L (136-145); eGFR For African Americans > 60 (> 60); eGFR For Non-African Americans > 60 (> 60)
[2017-01-07] MEDS: Budesonide/Formoterol 160/4.5 MDI IH SCH ×2 (07:59→20:07)
[2017-01-07] MEDS: Gabapentin 300 MG CAPSULE PO SCH ×3 (09:12→20:50)
[2017-01-07] MEDS: *HR* Ticagrelor 90 MG TABLET PO SCH ×2 (09:13→20:50)
[2017-01-07] MEDS: clonazePAM 1 MG TABLET PO SCH ×3 (09:13→20:50)
[2017-01-07] MEDS: Aspirin 81 MG TAB.CHEW PO SCH (09:14)
[2017-01-07] MEDS: Nicotine 14 MG PATCH.TD24 TD SCH (09:16)
--- NOTE | 2017-01-07 15:35 | Internal Med Progress Note ---
Date of Encounter: 01/07/17 Time of Encounter: 11:20 - Assessment and plan (1) Cellulitis Current Visit: Yes Status: Acute Assessment and plan: Continue broad-spectrum IV antibiotics. Remaining plan as below. Qualifiers: Site of cellulitis: buttock Qualified Code(s): L03.317 - Cellulitis of buttock (2) Decubitus ulcer Current Visit: Yes Status: Acute Assessment and plan: Patient presents with big sized, deep right buttock decubitus ulcer. Pelvic CT shows wounds extending almost to coccyx, possible sinus tract, no focal abscess. Continue IV vancomycin and cefepime. Blood cultures remain negative, preliminary wound culture grows scanty gram-negative rods. Surgery has been consulted, patient underwent debridement with wound VAC application, postoperative day 1. Pain control with when necessary IV Dilaudid. Physical and occupational therapy evaluation noted, noted to have no needs at discharge. Patient will require home health services for wound care and wound VAC management. Qualifiers: Pressure ulcer location: buttock Pressure ulcer stage: unstageable Laterality: right Qualified Code(s): L89.310 - Pressure ulcer of right buttock , unstageable (3) Tobacco abuse Current Visit: Yes Status: Chronic Assessment and plan: Patient is not motivated to quit smoking at this time. Continue nicotine transdermal patch. (4) CAD (coronary artery disease) Current Visit: Yes Status: Chronic Assessment and plan: History of recent inferior wall [place] status post bare metal stent placement. Continue aspirin, Brilinta, beta devin and statin. Qualifiers: Coronary Disease-Associated Artery/Lesion type: [place] artery [place] vs. transplanted heart: [place] heart Associated angina: without angina Qualified Code(s): I25.10 - Atherosclerotic heart disease of [place] coronary artery without angina pectoris (5) HTN (hypertension) Current Visit: Yes Status: Chronic Assessment and plan: Blood pressure noted to be well controlled. Continue beta devin and hold JACKSON inhibitor as patient does not take this at home due to low normal blood pressure. Qualifiers: Hypertension type: essential hypertension Qualified Code(s): I10 - Essential (primary) hypertension (6) Chronic back pain Current Visit: Yes Status: Chronic Qualifiers: Back pain location: back pain in unspecified location Back pain laterality : unspecified Qualified Code(s): M54.9 - Dorsalgia, unspecified; G89.29 - Other chronic pain (7) Hyperlipidemia Current Visit: Yes Status: Chronic Qualifiers: Hyperlipidemia type: unspecified Qualified Code(s): E78.5 - Hyperlipidemia , unspecified (8) PTSD (post-traumatic stress disorder) Current Visit: Yes Status: Chronic (9) COPD (chronic obstructive pulmonary disease) Current Visit: Yes Status: Chronic Assessment and plan: Not in acute exacerbation. Continue when necessary bronchodilators and supplemental oxygen. Continue inhaled corticosteroids. Qualifiers: COPD type: unspecified COPD Qualified Code(s): J44.9 - Chronic obstructive pulmonary disease, unspecified - Subjective Interval history: Patient continues to be irritable and reports he still has the "sore back" that he came in with. No fever, chills, nausea, vomiting, chest pain or shortness of breath. Plan of care discussed with his daughter at bedside. - Constitutional Vitals: Temp Pulse Resp BP Pulse Ox 97.5 F L 56 17 122/52 96 01/07/17 14:55 01/07/17 14:55 01/07/17 14:55 01/07/17 14:55 01/07/17 14:55 General appearance: Present: cachectic, A&O X 3, answers questions appropriately - Respiratory Respiratory exam: Present: CTAB. Absent: accessory muscle use, rales, rhonchi, wheezes - Cardiovascular Cardiovascular exam: Present: RRR, +S1, +S2. Absent: diastolic murmur, gallop, rubs, systolic murmur - GI/Abdominal GI/Abdominal exam: Present: normal bowel sounds, soft, no peritoneal signs. Absent: distended, tenderness - Back Exam Additional comments: Right medial gluteal area-improving cellulitis, status post debridement and wound VAC application. Internal Medicine: Result - Labs CBC & Chem 7: 01/07/17 05:18 01/07/17 05:18 Labs: Short CBC 01/07/17 Range/Units 05:18 WBC 5.5 (4.3-11.1) K/mcL Hgb 11.7 L (12.9-16.9) g/dL Hct 36.2 L (37.5-50.1) % Plt Count 352 (140-400) K/mcL Neutrophils # 4.5 (1.6-8.9) K/mcL BMP 01/07/17 05:18 Sodium 137 Potassium 4.4 Chloride 108 Carbon Dioxide 26 BUN 13 Creatinine 0.97 Glucose 323 H Calcium 8.4 L - VTE Documentation of Mechanical Device: Intermittent pneumatic compression device Consult Discharge Plan - Plan Referrals: Bridger Tucker MD [Non-Partnered Physician] - Estephania Baca CNP [Primary Care Provider] -
[2017-01-07] MEDS: *HR* HYDROmorphone (PF) 1 MG/ML SYRINGE IVP PRN ×3 (16:12→22:31)
[2017-01-07 17:30] LABS: Hemoglobin A1C 6.2 %
--- NOTE | 2017-01-07 18:29 | General Surgery Progress Note ---
Date of Encounter: 01/07/17 Time of Encounter: 17:30 Subjective Patient reports: still having pain Narrative: General Surgery - POD #1 patient c/o pain right shoulder, neck, back and right arm - not receiving enough pain relief. Afebrile, currently 97.5, pulse 56, respirations 17, blood pressure 122/52. SPO2 on room air 96%. Buttock wound clean; Wound Vac intact; minimal drainage. Laboratories: White count 5.5, hemoglobin 11.6, hematocrit 36.2. Platelet count 352,000. Electrolytes, BUN, creatinine within normal limits. Wound cultures - gram-negative yusra; identification and sensitivity pending. Impression: Postoperative day 1, status post debridement traumatic, necrotic, sacral wound. Appears to be responding to operative debridement with wound VAC therapy, however, he is complaining bitterly of pain right shoulder, neck, back, and right arm despite Oxycodone with Tylenol 10/325 every 4 hours as needed for pain and Dilaudid IV for pain not relieved by oral medications. Nursing reports patient wants Oxycodone 30 mg (suspect patient means oxycontin). The patient's daughters informed during the post operative family conference that patient presented to [facility] with a severe [place] approx 1 month ago. He was transported to [facility] and shortly after coronary stenting discharged himself AMA. I suspect the patient is behaving in a similar fashion and may leave the hospital AM if he does not receive the pain medications he is demanding. Objective Vital Signs - Last 8 Hours Temp Pulse Resp BP Pulse Ox 01/07/17 14:55 97.5 F L 56 17 122/52 96 01/07/17 10:47 97.5 F L 65 15 107/44 97 Intake and Output 01/07/17 01/07/17 01/07/17 07:59 15:59 23:59 Intake Total 1470 / 1470 240 / 240 Output Total 300 / 300 550 / 550 Balance 1170 / 1170 -310 / -310 Intake: IV Fluids 1350 / 1350 Lactated Ringers 1,000 ML 1000 / 1000 @ 75 mls/hr IVC .[id number] ANAHI Rx#:[id number] Maxipime 1,000 MG In 100 / 100 Dextrose 5% (Minibag+) 100 ML 100 ML @ 200 mls/ hr IVPB Q12H ANAHI Rx#: [id number] Vancocin 750 MG In 250 / 250 Dextrose 5% 250 ML @ 250 mls/hr IVPB Q12H [facility] Rx#: [id number] Oral 120 / 120 240 / 240 Output: Urine 250 / 250 550 / 550 Wound Drainage 50 / 50 Right Medial Buttock/ 50 / 50 Gluteal Other: Meal Lunch Percent of Meal Consumed 5% Weight 58.967 kg Blood Glucose* 325 152 Patient Weight 01/07/17 23:59 Weight 58.967 kg - Labs 01/07/17 05:18 01/07/17 05:18 Diabetes panel 01/07/17 01/07/17 Range/Units 05:18 05:18 Sodium 137 (136-145) mEq/L Potassium 4.4 (3.5-4.5) mEq/L Chloride 108 (98-109) mEq/L Carbon Dioxide 26 (19-29) mEq/L BUN 13 (8-26) mg/dL Creatinine 0.97 (0.72-1.25) mg/dL Glucose 323 H (70-99) mg/dL Hemoglobin A1c 6.2 H ( - 5.6) % Calcium 8.4 L (8.6-10.8) mg/dL Calcium panel 01/07/17 Range/Units 05:18 Calcium 8.4 L (8.6-10.8) mg/dL Pituitary panel 01/07/17 Range/Units 05:18 Sodium 137 (136-145) mEq/L Potassium 4.4 (3.5-4.5) mEq/L Chloride 108 (98-109) mEq/L Carbon Dioxide 26 (19-29) mEq/L BUN 13 (8-26) mg/dL Creatinine 0.97 (0.72-1.25) mg/dL Glucose 323 H (70-99) mg/dL Calcium 8.4 L (8.6-10.8) mg/dL Adrenal panel 01/07/17 Range/Units 05:18 Sodium 137 (136-145) mEq/L Potassium 4.4 (3.5-4.5) mEq/L Chloride 108 (98-109) mEq/L Carbon Dioxide 26 (19-29) mEq/L BUN 13 (8-26) mg/dL Creatinine 0.97 (0.72-1.25) mg/dL Glucose 323 H (70-99) mg/dL Calcium 8.4 L (8.6-10.8) mg/dL - VTE Documentation of Mechanical Device: Intermittent pneumatic compression device Consult Discharge Plan - Plan Referrals: Bridger Tucker MD [Non-Partnered Physician] - Estephania Baca CNP [Primary Care Provider] -
[2017-01-08] MEDS: Vancomycin 750 MG in D5% in Water 250 ML IVPB SCH (02:51)
[2017-01-08] MEDS: *HR* OxyCODONE/APAP 10/325 TABLET PO PRN ×5 (02:56→20:53)
[2017-01-08] MEDS: *HR* HYDROmorphone (PF) 1 MG/ML SYRINGE IVP PRN ×6 (03:47→21:31)
[2017-01-08] MEDS: Cefepime HCl 1,000 MG in D5% in Water (Mini-Bag+) 100 ML IVPB SCH ×2 (06:18→17:41)
[2017-01-08] MEDS: *HR* Heparin 5,000 UNIT/ML VIAL SQ SCH ×3 (06:18→20:54)
[2017-01-08] MEDS: Nicotine 14 MG PATCH.TD24 TD SCH (07:35)
[2017-01-08] MEDS: *HR* Ticagrelor 90 MG TABLET PO SCH ×2 (07:47→20:53)
[2017-01-08] MEDS: Gabapentin 300 MG CAPSULE PO SCH ×3 (07:47→20:52)
[2017-01-08] MEDS: clonazePAM 1 MG TABLET PO SCH ×3 (07:47→20:52)
[2017-01-08] MEDS: Aspirin 81 MG TAB.CHEW PO SCH (07:47)
[2017-01-08] MEDS: Budesonide/Formoterol 160/4.5 MDI IH SCH ×2 (08:28→21:52)
--- NOTE | 2017-01-08 12:02 | Internal Med Progress Note ---
Date of Encounter: 01/08/17 Time of Encounter: 10:45 - Assessment and plan (1) Cellulitis Current Visit: Yes Status: Acute Assessment and plan: Continue broad-spectrum IV antibiotics. Remaining plan as below. Qualifiers: Site of cellulitis: buttock Qualified Code(s): L03.317 - Cellulitis of buttock (2) Decubitus ulcer Current Visit: Yes Status: Acute Assessment and plan: Patient presents with big sized, deep right buttock decubitus ulcer. Pelvic CT shows wounds extending almost to coccyx, possible sinus tract, no focal abscess. Blood cultures remain negative, preliminary wound culture grows scanty gram-negative rods. Hold vancomycin and continue cefepime for now. Surgery is on board, patient underwent debridement with wound VAC application, postoperative day 2, wound is noted to be healing well per surgery. Pain control with when necessary IV Dilaudid and oral Percocet. Patient has orders for every 4 hourly Percocet as needed, however he seems to think that he is not getting more than 4 Percocets per day and demands to increase his Percocet dosing. Physical and occupational therapy evaluation noted, noted to have no needs at discharge. Patient will require home health services for wound care and wound VAC management. Qualifiers: Pressure ulcer location: buttock Pressure ulcer stage: unstageable Laterality: right Qualified Code(s): L89.310 - Pressure ulcer of right buttock , unstageable (3) Tobacco abuse Current Visit: Yes Status: Chronic Assessment and plan: Patient is not motivated to quit smoking at this time. Continue nicotine transdermal patch. (4) CAD (coronary artery disease) Current Visit: Yes Status: Chronic Assessment and plan: History of recent inferior wall [place] status post bare metal stent placement. Continue aspirin, Brilinta, beta devin and statin. Qualifiers: Coronary Disease-Associated Artery/Lesion type: [place] artery [place] vs. transplanted heart: [place] heart Associated angina: without angina Qualified Code(s): I25.10 - Atherosclerotic heart disease of [place] coronary artery without angina pectoris (5) HTN (hypertension) Current Visit: Yes Status: Chronic Assessment and plan: Blood pressure noted to be well controlled. Continue beta devin and hold JACKSON inhibitor as patient does not take this at home due to low normal blood pressure. Qualifiers: Hypertension type: essential hypertension Qualified Code(s): I10 - Essential (primary) hypertension (6) Chronic back pain Current Visit: Yes Status: Chronic Qualifiers: Back pain location: back pain in unspecified location Back pain laterality : unspecified Qualified Code(s): M54.9 - Dorsalgia, unspecified; G89.29 - Other chronic pain (7) Hyperlipidemia Current Visit: Yes Status: Chronic Qualifiers: Hyperlipidemia type: unspecified Qualified Code(s): E78.5 - Hyperlipidemia , unspecified (8) PTSD (post-traumatic stress disorder) Current Visit: Yes Status: Chronic (9) COPD (chronic obstructive pulmonary disease) Current Visit: Yes Status: Chronic Qualifiers: COPD type: unspecified COPD Qualified Code(s): J44.9 - Chronic obstructive pulmonary disease, unspecified - Subjective Interval history: Noted to be slightly drowsy but able to answer appropriately. Continues to be fixated on the frequency of his Percocets. Reports his pain is not appropriately controlled; poor appetite; no fever, chills, nausea, vomiting. - Constitutional Vitals: Temp Pulse Resp BP Pulse Ox 97.4 F L 52 18 106/53 92 01/08/17 11:00 01/08/17 11:00 01/08/17 11:00 01/08/17 11:00 01/08/17 11:00 General appearance: Present: cachectic, A&O X 3, answers questions appropriately - Respiratory Respiratory exam: Present: CTAB. Absent: accessory muscle use, rales, rhonchi, wheezes - Cardiovascular Cardiovascular exam: Present: RRR, +S1, +S2. Absent: diastolic murmur, gallop, rubs, systolic murmur - GI/Abdominal GI/Abdominal exam: Present: normal bowel sounds, soft, no peritoneal signs. Absent: distended, tenderness Internal Medicine: Result - Labs CBC & Chem 7: 01/07/17 05:18 01/07/17 05:18 - VTE Documentation of Mechanical Device: Intermittent pneumatic compression device Consult Discharge Plan - Plan Referrals: Bridger Tucker MD [Non-Partnered Physician] - Estephania Baca CNP [Primary Care Provider] -
--- NOTE | 2017-01-08 13:20 | General Surgery Progress Note ---
Date of Encounter: 01/08/17 Time of Encounter: 13:15 Subjective Patient reports: feels better Narrative: General Surgery - POD #2 Patient continues to complain of pain in multiple locations other than his sacrum Patient is also accusing nursing of not providing pain meds as ordered My presentation to the patient's bedside, he was quite sedated. He was not complaining of pain The patient is afebrile, currently 97.4. Pulse 52, respirations 18, blood pressure 106/53. Lungs: Clear Abdomen: Soft, nondistended, nontender. Active bowel sounds. Sacrum: Wound VAC dressing removed; the sacral wound is clean and appears healthy. Healthy tissue is evident at the wound edges. Impression: Postoperative day 2, status post debridement of traumatic, necrotic sacral wound. Wound VAC exchange today; wound is clean and responding to treatment. Objective Vital Signs - Last 8 Hours Temp Pulse Resp BP Pulse Ox 01/08/17 11:00 97.4 F L 52 18 106/53 92 01/08/17 08:29 16 97 01/08/17 07:20 97.4 F L 48 16 134/83 96 Intake and Output 01/07/17 01/08/17 01/08/17 23:59 07:59 15:59 Intake Total 350 / 350 590 / 590 120 / 120 Output Total 0 / 0 2049 / 2049 Balance 350 / 350 -1460 / -1460 120 / 120 Intake: IV Fluids 350 / 350 350 / 350 Maxipime 1,000 MG In 100 / 100 100 / 100 Dextrose 5% (Minibag+) 100 ML 100 ML @ 200 mls/ hr IVPB Q12H ANAHI Rx#: [id number] Vancocin 750 MG In 250 / 250 250 / 250 Dextrose 5% 250 ML @ 250 mls/hr IVPB Q12H ANAHI Rx#: [id number] Oral 0 / 0 240 / 240 120 / 120 Output: Urine 0 / 0 1950 / 1950 Wound Drainage 100 / 100 Right Medial Buttock/ 50 / 50 Gluteal coccyx 50 / 50 Other: Meal Refused Breakfast Percent of Meal Consumed 100% Weight 58.922 kg Patient Weight 01/08/17 23:59 Weight 58.922 kg - Labs 01/07/17 05:18 01/07/17 05:18 Diabetes panel 01/07/17 Range/Units 05:18 Hemoglobin A1c 6.2 H ( - 5.6) % - VTE Documentation of Mechanical Device: Intermittent pneumatic compression device Consult Discharge Plan - Plan Referrals: Bridger Tucker MD [Non-Partnered Physician] - Estephania Baca CNP [Primary Care Provider] -
[2017-01-09] MEDS: *HR* OxyCODONE/APAP 10/325 TABLET PO PRN ×4 (01:59→17:41)
[2017-01-09] MEDS: *HR* HYDROmorphone (PF) 1 MG/ML SYRINGE IVP PRN ×6 (02:06→21:37)
[2017-01-09] MEDS: *HR* Heparin 5,000 UNIT/ML VIAL SQ SCH ×3 (06:47→21:38)
[2017-01-09] MEDS: Cefepime HCl 1,000 MG in D5% in Water (Mini-Bag+) 100 ML IVPB SCH (06:47)
[2017-01-09] MEDS: Gabapentin 300 MG CAPSULE PO SCH ×3 (09:32→21:37)
[2017-01-09] MEDS: clonazePAM 1 MG TABLET PO SCH ×3 (09:33→21:38)
[2017-01-09] MEDS: Aspirin 81 MG TAB.CHEW PO SCH (09:33)
[2017-01-09] MEDS: Nicotine 14 MG PATCH.TD24 TD SCH (09:33)
[2017-01-09] MEDS: *HR* Ticagrelor 90 MG TABLET PO SCH ×2 (09:34→21:38)
[2017-01-09] MEDS: Budesonide/Formoterol 160/4.5 MDI IH SCH ×2 (10:24→22:21)
--- NOTE | 2017-01-09 11:48 | Internal Med Progress Note ---
Date of Encounter: 01/09/17 Time of Encounter: 11:47 - Assessment and plan (1) Cellulitis Current Visit: Yes Status: Acute Assessment and plan: Continue IV antibiotics. Remaining plan as below. Qualifiers: Site of cellulitis: buttock Qualified Code(s): L03.317 - Cellulitis of buttock (2) Decubitus ulcer Current Visit: Yes Status: Acute Assessment and plan: Patient presents with big sized, deep right buttock decubitus ulcer. Pelvic CT shows wounds extending almost to coccyx, possible sinus tract, no focal abscess. Blood cultures remain negative, wound culture grows scanty Acenitobacter. Hold cefepime and continue IV Levaquin for now. Surgery is on board, patient underwent debridement with wound VAC application, postoperative day 3, wound is noted to be healing well per surgery. Wound VAC is highly recommended to aid with appropriate wound healing. However, patient continues to insist that he wants to be discharged home despite explaining that his home health services are not in place and his wound VAC is yet to be approved by his insurance. Pain control with when necessary IV Dilaudid and oral Percocet. Physical and occupational therapy evaluation noted, noted to have no needs at discharge. Patient will require home health services for wound care and wound VAC management. Qualifiers: Pressure ulcer location: buttock Pressure ulcer stage: unstageable Laterality: right Qualified Code(s): L89.310 - Pressure ulcer of right buttock , unstageable (3) Tobacco abuse Current Visit: Yes Status: Chronic Assessment and plan: Patient is not motivated to quit smoking at this time. Continue nicotine transdermal patch. (4) CAD (coronary artery disease) Current Visit: Yes Status: Chronic Assessment and plan: History of recent inferior wall [place] status post bare metal stent placement. Continue aspirin, Brilinta, beta devin and statin. Qualifiers: Coronary Disease-Associated Artery/Lesion type: [place] artery [place] vs. transplanted heart: [place] heart Associated angina: without angina Qualified Code(s): I25.10 - Atherosclerotic heart disease of [place] coronary artery without angina pectoris (5) HTN (hypertension) Current Visit: Yes Status: Chronic Assessment and plan: Blood pressure noted to be well controlled. Continue beta devin. Qualifiers: Hypertension type: essential hypertension Qualified Code(s): I10 - Essential (primary) hypertension (6) Chronic back pain Current Visit: Yes Status: Chronic Qualifiers: Back pain location: back pain in unspecified location Back pain laterality : unspecified Qualified Code(s): M54.9 - Dorsalgia, unspecified; G89.29 - Other chronic pain (7) Hyperlipidemia Current Visit: Yes Status: Chronic Qualifiers: Hyperlipidemia type: unspecified Qualified Code(s): E78.5 - Hyperlipidemia , unspecified (8) PTSD (post-traumatic stress disorder) Current Visit: Yes Status: Chronic (9) COPD (chronic obstructive pulmonary disease) Current Visit: Yes Status: Chronic Qualifiers: COPD type: unspecified COPD Qualified Code(s): J44.9 - Chronic obstructive pulmonary disease, unspecified - Subjective Interval history: Requests continuously to be discharged home as he feels claustrophobic and has flashbacks from his days; reports right buttock pain that is improving; wants to go outside to smoke; - Constitutional Vitals: Temp Pulse Resp BP Pulse Ox 97.8 F 51 15 146/53 96 01/09/17 10:39 01/09/17 10:39 01/09/17 10:39 01/09/17 10:39 01/09/17 10:39 General appearance: Present: cachectic, A&O X 3, answers questions appropriately - Respiratory Respiratory exam: Present: CTAB. Absent: accessory muscle use, rales, rhonchi, wheezes - Cardiovascular Cardiovascular exam: Present: RRR, +S1, +S2. Absent: diastolic murmur, gallop, rubs, systolic murmur - Extremities Exam Extremities exam: Present: full ROM, warm, radial pulses palpable and symetrical. Absent: calf tenderness, cyanotic, pedal edema - Back Exam Additional comments: Right medial gluteal area with significantly improved cellulitis and wound vac in place Internal Medicine: Result - Labs CBC & Chem 7: 01/07/17 05:18 01/07/17 05:18 - VTE Documentation of Mechanical Device: Intermittent pneumatic compression device Consult Discharge Plan - Plan Referrals: Bridger Tucker MD [Non-Partnered Physician] - Estephania Baca CNP [Primary Care Provider] - Prescriptions: levoFLOXacin [Levaquin] 500 mg PO DAILY #10 tablet
[2017-01-09] MEDS: Levofloxacin 500 MG/100 ML 500 MG/100 ML BAG IVPB SCH (12:05)
--- NOTE | 2017-01-09 15:46 | General Surgery Progress Note ---
Date of Encounter: 01/09/17 Time of Encounter: 15:36 Subjective Narrative: General Surgery - POD #3 patient wants to go home; patient indicates that he was informed that he could be discharged on oral ATB and wound dressings Wound Vac providing effective wound treatment but yet to be approved by Insurance Patient appears to be in no acute distress; afebrile, 97.8, pulse 51, respirations 15, blood pressure 146/53. Sacral wound: Soft, nontender. Wound VAC is intact. No surrounding erythema, edema, or induration. Wound drainage for 01/08/17 was 125 mL; 20 mL so far today Wound cultures: Acinetobacter baumannii/haemolyticus - sensitive to all tested antibiotics. This includes Cipro, Levaquin, Bactrim which are avaliable in oral form. Impression - postoperative day #3, status post debridement traumatic,necrotic, sacral wound. Patient is doing well with wound VAC therapy, however, the patient is requesting (demanding) discharge home. It would be beneficial for the patient to continue therapy as is, pending approval for Wound Vac use post discharge, but it does not appear likely that the patient will await wound VAC therapy to be approved. If discharged at this time, he may be discharged on oral antibiotics and local wound care such as wet to dry dressings. If discharged home: I will follow and care for his wound as an outpatient but I will not provide pain medication. Objective Vital Signs - Last 8 Hours Temp Pulse Resp BP Pulse Ox 01/09/17 10:39 97.8 F 51 15 146/53 96 01/09/17 10:25 16 96 Intake and Output 01/08/17 01/09/17 01/09/17 23:59 07:59 15:59 Intake Total 100 / 100 220 / 220 100 / 100 Output Total 325 / 325 1075 / 1075 870 / 870 Balance -225 / -225 -855 / -855 -770 / -770 Intake: IV Fluids 100 / 100 100 / 100 100 / 100 Maxipime 1,000 MG In 100 / 100 100 / 100 Dextrose 5% (Minibag+) 100 ML 100 ML @ 200 mls/ hr IVPB Q12H ANAHI Rx#: [id number] Levaquin Premix 500mg/ 100 / 100 100mL 500 mg In 100 ml @ 100 mls/hr IVPB Q24H ANAHI Rx#:[id number] Oral 0 / 0 120 / 120 Output: Urine 325 / 325 1075 / 1075 850 / 850 Wound Drainage Right Medial Buttock/ Gluteal coccyx Other: Weight 58.967 kg Patient Weight 01/09/17 23:59 Weight 58.967 kg - Labs 01/07/17 05:18 01/07/17 05:18 - VTE Documentation of Mechanical Device: Intermittent pneumatic compression device Consult Discharge Plan - Plan Referrals: Bridger Tucker MD [Non-Partnered Physician] - Estephania Baca CNP [Primary Care Provider] -
[2017-01-10] MEDS: *HR* HYDROmorphone (PF) 1 MG/ML SYRINGE IVP PRN ×2 (01:49→05:27)
[2017-01-10] MEDS: *HR* OxyCODONE/APAP 10/325 TABLET PO PRN ×3 (03:47→12:34)
[2017-01-10] MEDS: *HR* Heparin 5,000 UNIT/ML VIAL SQ SCH (05:27)
[2017-01-10] MEDS: Budesonide/Formoterol 160/4.5 MDI IH SCH (08:01)
[2017-01-10 08:26] VITALS: BP 149/49
[2017-01-10] MEDS: *HR* Ticagrelor 90 MG TABLET PO SCH (08:27)
[2017-01-10] MEDS: clonazePAM 1 MG TABLET PO SCH (08:27)
[2017-01-10] MEDS: Nicotine 14 MG PATCH.TD24 TD SCH (08:28)
[2017-01-10] MEDS: Gabapentin 300 MG CAPSULE PO SCH (08:28)
[2017-01-10] MEDS: Aspirin 81 MG TAB.CHEW PO SCH (08:28)
--- NOTE | 2017-01-10 10:23 | Discharge Summary ---
Date of Encounter: 01/10/17 Time of Encounter: 10:20 - Discharge Diagnosis (1) Cellulitis Priority: Primary Status: Acute Qualifiers: Site of cellulitis: buttock Qualified Code(s): L03.317 - Cellulitis of buttock (2) Decubitus ulcer Priority: Primary Status: Acute Qualifiers: Pressure ulcer location: buttock Pressure ulcer stage: unstageable Laterality: right Qualified Code(s): L89.310 - Pressure ulcer of right buttock , unstageable (3) Tobacco abuse Priority: Secondary Status: Chronic (4) CAD (coronary artery disease) Priority: Secondary Status: Chronic Qualifiers: Coronary Disease-Associated Artery/Lesion type: [place] artery [place] vs. transplanted heart: [place] heart Associated angina: without angina Qualified Code(s): I25.10 - Atherosclerotic heart disease of [place] coronary artery without angina pectoris (5) HTN (hypertension) Priority: Secondary Status: Chronic Qualifiers: Hypertension type: essential hypertension Qualified Code(s): I10 - Essential (primary) hypertension (6) Chronic back pain Priority: Secondary Status: Chronic Qualifiers: Back pain location: back pain in unspecified location Back pain laterality : unspecified Qualified Code(s): M54.9 - Dorsalgia, unspecified; G89.29 - Other chronic pain (7) Hyperlipidemia Priority: Secondary Status: Chronic Qualifiers: Hyperlipidemia type: unspecified Qualified Code(s): E78.5 - Hyperlipidemia , unspecified (8) PTSD (post-traumatic stress disorder) Priority: Secondary Status: Chronic (9) COPD (chronic obstructive pulmonary disease) Priority: Secondary Status: Chronic Qualifiers: COPD type: unspecified COPD Qualified Code(s): J44.9 - Chronic obstructive pulmonary disease, unspecified - Discharge Medications Prescriptions: Atenolol [Tenormin] 12.5 mg PO DAILY #15 tab levoFLOXacin [Levaquin] 500 mg PO DAILY #10 tablet OxyCODONE/APAP 10/325 [Percocet 10/325 MG] 1 each PO Q6H PRN #30 tab PRN Reason: Pain Home Medications: Calcium Carbonate [Calcium] 500 mg PO DAILY 12/17/15 [History] Gabapentin [Neurontin] 600 mg PO TID 12/17/15 [History] Potassium 99 mg PO DAILY 12/17/15 [History] Simvastatin [Zocor] 80 mg PO HS 12/17/15 [History] Aspirin 81 mg PO DAILY #30 tab.chew 12/18/15 [Rx] Budesonide/Formoterol 160/4.5 [Symbicort 160/4.5] 2 puff IH BIDR 12/18/15 [ History] Ipratropium/Albuterol Neb [Duoneb] 3 ml IH Q6H PRN #100 inhsol 12/18/15 [Rx] Nitroglycerin [Nitrostat] 0.4 mg SL AD PRN 01/05/17 [History] Ticagrelor [Brilinta] 90 mg PO BID 01/05/17 [History] clonazePAM [Klonopin] 1 mg PO TID 01/05/17 [History] levoFLOXacin [Levaquin] 500 mg PO DAILY #10 tablet 01/09/17 [Rx] Atenolol [Tenormin] 12.5 mg PO DAILY #0 01/10/17 [Rx] Atenolol [Tenormin] 12.5 mg PO DAILY #15 tab 01/10/17 [Rx] OxyCODONE/APAP 10/325 [Percocet 10/325 MG] 1 each PO Q6H PRN #30 tab 01/10/17 [ Rx] Allergies/Adverse Reactions: Allergies morphine Adverse Reaction (Verified 12/17/15 18:47) See Comments Causes heart rate to drop Date of admission: 01/05/17 14:02 Primary care physician: Estephania Baca CNP Consults: 01/05/17 14:53 Consult to Physical Therapy [CONS] Routine Comment: Evaluate, develop and implement POC Reason for Consult: discharge planning OT [Consult to Occupational Therapy] [CONS] Routine Comment: Evaluate, develop and implement POC Reason for Consult: discharge planning 01/05/17 15:17 Consult to Nutrition [CONS] Routine Comment: Consulting Provider: NUTRITION Reason for Dietary Consult: MST Score 01/06/17 10:03 Consult to Cardiology [CONS] Routine Comment: Consulting Provider: Cardiology Marianela Reason for Consult: Clearance for sacral wound debridement under [place], recent stents placed with noncompliance, at [facility] Call Completed: No Discharging clinician: Jeanette Aburto Anticipated date of discharge: 01/10/17 - Patient Status Disposition: Home Health Service Condition: Fair Functional capacity at discharge: independent ambulation Overall status at discharge: patient is progressing back to baseline - Discharge Instructions Follow Up With: Bridger Tucker MD [Non-Partnered Physician] - Estephania Baca CNP [Primary Care Provider] - Additional Instructions: F/up with in 1 week F/up with PCP in 1-2 weeks - Diet and Activity Activity: resume usual activities as tolerated Diet: low fat, low cholesterol, low salt diet Hospital course: Mr. Perez is a 71 year old male with the above medical problems who was admitted with necrotic sacral wound, possibly decubitus ulcer exacerbated by recent fall. Patient was started on empiric IV antibiotics. Patient was noted to have a recent inferior wall [place] within the last 2 months and had bare-metal stent placement and has been on dual antiplatelet therapy. Cardiology was consulted and patient was cleared for surgery with intermediate perioperative risk. Surgery was consulted and patient underwent operative debridement and wound VAC placement. Initial wound culture grows Acinetobacter baumanii. Patient's wound showed significant improvement and surrounding cellulitis has resolved. He is currently medically stable for discharge. He was supposed to be discharged on wound VAC, which could not be arranged due to weekend. However , patient insists on being discharged today and surgery cleared him for discharge with wet to dry dressings, with outpatient surgery follow-up. He is being discharged on oral antibiotics. - Time Spent with Patient Total time spent providing and/or coordinating discharge services: Greater than 30 minutes (45 min) - Constitutional Vitals: Temp Pulse Resp BP Pulse Ox 97.7 F 57 15 149/49 97 01/10/17 08:25 01/10/17 08:25 01/10/17 08:25 01/10/17 08:25 01/10/17 08:25 General appearance: Present: cachectic, A&O X 3, answers questions appropriately - Respiratory Respiratory exam: Present: CTAB. Absent: accessory muscle use, rales, rhonchi, wheezes - Back Exam Additional comments: Right gluteal area- almost complete resolution of cellulitis; wound vac in place - VTE Documentation of Mechanical Device: Intermittent pneumatic compression device
--- NOTE | 2017-01-10 10:26 | Physician Discharge Referral ---
Home Health/Hosp Referral Info Transfer to: Home Health Attending Provider: Jeanette Aburto Provider in Charge Post Discharge: PCP - Diagnosis (1) Cellulitis Priority: Primary Status: Acute (2) Decubitus ulcer Priority: Primary Status: Acute (3) Tobacco abuse Priority: Secondary Status: Chronic (4) CAD (coronary artery disease) Priority: Secondary Status: Chronic (5) HTN (hypertension) Priority: Secondary Status: Chronic (6) Chronic back pain Priority: Secondary Status: Chronic (7) Hyperlipidemia Priority: Secondary Status: Chronic (8) PTSD (post-traumatic stress disorder) Priority: Secondary Status: Chronic (9) COPD (chronic obstructive pulmonary disease) Priority: Secondary Status: Chronic - Respiratory Orders Smoking Cessation: Smoking cessation has been advised. For more information, call the [employer] Quit Line at 0-922-CZOD-NOW. - Diet/Nutrition Diet/Nutrition Orders: Cardiac - Activity Activity Orders: Ambulate - Services Needed Following services are medically necessary services: Nursing - Transfer Medications Prescriptions: Atenolol [Tenormin] 12.5 mg PO DAILY #15 tab levoFLOXacin [Levaquin] 500 mg PO DAILY #10 tablet OxyCODONE/APAP 10/325 [Percocet 10/325 MG] 1 each PO Q6H PRN #30 tab PRN Reason: Pain Home Medications: Calcium Carbonate [Calcium] 500 mg PO DAILY 12/17/15 [History] Gabapentin [Neurontin] 600 mg PO TID 12/17/15 [History] Potassium 99 mg PO DAILY 12/17/15 [History] Simvastatin [Zocor] 80 mg PO HS 12/17/15 [History] Aspirin 81 mg PO DAILY #30 tab.chew 12/18/15 [Rx] Budesonide/Formoterol 160/4.5 [Symbicort 160/4.5] 2 puff IH BIDR 12/18/15 [ History] Ipratropium/Albuterol Neb [Duoneb] 3 ml IH Q6H PRN #100 inhsol 12/18/15 [Rx] Nitroglycerin [Nitrostat] 0.4 mg SL AD PRN 01/05/17 [History] Ticagrelor [Brilinta] 90 mg PO BID 01/05/17 [History] clonazePAM [Klonopin] 1 mg PO TID 01/05/17 [History] levoFLOXacin [Levaquin] 500 mg PO DAILY #10 tablet 01/09/17 [Rx] Atenolol [Tenormin] 12.5 mg PO DAILY #0 01/10/17 [Rx] Atenolol [Tenormin] 12.5 mg PO DAILY #15 tab 01/10/17 [Rx] OxyCODONE/APAP 10/325 [Percocet 10/325 MG] 1 each PO Q6H PRN #30 tab 01/10/17 [ Rx] Allergies/Adverse Reactions: Allergies morphine Adverse Reaction (Verified 12/17/15 18:47) See Comments Causes heart rate to drop Certification: Further, I certify that my clinical findings support that this patient is homebound (i.e. absences from home require considerable and taxing effort and are for medical reasons or tenriism services or infrequently or short duration when for other reasons) because: Homebound Reason: Patient requires assistance of a person or device to safely leave home Attestation: My signature below is to certify that this patient is under my care and that I, or nurse practitioner, or a physician's certified ophthalmic assistant working with me, has a face-to -face encounter with this patient.
[2017-01-10] MEDS: Levofloxacin 500 MG/100 ML 500 MG/100 ML BAG IVPB SCH (12:34)
== END 2017-01-10 14:25 | disposition home health service (06) | DRG 571 ==
LOC: 3ANU 10:48 → EMEROO 10:48 → 3ANU 14:30
PROVIDERS: ADMIT Internal Medicine; ATTEND Internal Medicine

== ENCOUNTER 2018-12-01 14:48 | Observation (INO) ==
[2018-12-01 15:40] LABS: Basophils % 0.2 %; Eosinophils # 0.1 K/mcL (0.0-0.6); Eosinophils % 0.7 %; Hematocrit 43.7 % (37.5-50.1); Hemoglobin 14.7 g/dL (12.9-16.9); Lymphocytes # 2.8 K/mcL (0.6-4.6); Lymphocytes % 18.6 %; Mean Corpuscular HGB Conc 33.6 g/dL (31.6-35.5); Mean Corpuscular Hemoglobin 33.6 pg (28.0-33.3); Mean Platelet Volume 11.5 fL (9.4-12.4); Monocytes # 0.8 K/mcL (0.0-1.3); Monocytes % 5.2 %; Neutrophils # 11.3 K/mcL (1.6-8.9); Platelet Count 242 K/mcL (140-400); Red Blood Count 4.37 M/mcL (4.19-5.50); Red Cell Distribution Width 15.1 % (11.5-14.5); Segmented Neutrophils % 74.3 %; White Blood Count 15.2 K/mcL (4.3-11.1)
[2018-12-01 16:01] LABS: BUN/Creatinine Ratio 45 (6-26); Blood Urea Nitrogen 29 mg/dL (8-23); Calcium 9.5 mg/dL (8.6-10.3); Carbon Dioxide 27 mEq/L (23-29); Chloride 103 mEq/L (98-107); Glucose 121 mg/dL (70-105); Osmolality,Calculated 295 (280-300); Potassium 4.4 mEq/L (3.5-5.1); Sodium 139 mEq/L (136-145); Troponin I < 0.03 ng/mL (< 0.04); eGFR For African Americans > 60 (> 60); eGFR For Non-African Americans > 60 (> 60)
[2018-12-01] MEDS ORDERED: 0.9 % Sodium Chloride 1,000 ML IVC ONE (16:02)
[2018-12-01] MEDS ORDERED: methylPREDNISolone 125 MG/2 ML VIAL IVP ONE (16:11)
[2018-12-01] MEDS ORDERED: Azithromycin 500 MG in D5% in Water 250 ML IVPB ONE (16:11)
[2018-12-01] MEDS ORDERED: cefTRIAXone 1,000 MG in Water for inj. (sterile) 20 ML 10 ML IVP ONE (16:11)
[2018-12-01] MEDS ORDERED: Aspirin 81 MG TAB.CHEW PO ONE (16:11)
[2018-12-01] MEDS ORDERED: 0.9 % Sodium Chloride 500 ML IVC ONE (16:12)
--- NOTE | 2018-12-01 16:35 | Emergency Department Note ---
Disposition Clinical Impression: Stable angina, COPD exacerbation CHF (congestive heart failure) Qualifiers: Heart failure type: unspecified Heart failure chronicity: chronic Qualified Code(s): I50.9 - Heart failure, unspecified Disposition: Admitted As Inpatient Condition: Fair [facility]: [facility]Primary Care Provider[facility] - Forms: ED Satisfaction Letter Time of Disposition: 16:38 Chest Pain HPI - General Chief Complaint: ED Chest Pain Stated Complaint: chest pain Time Seen by Provider: 12/01/18 14:54 Source: patient Mode of arrival: ambulatory Limitations: no limitations Vital Signs Reviewed: Yes Nursing Notes Reviewed: Yes - History of Present Illness HPI Narrative: 73-year-old male presents to the emergency department with chest pain as well as shortness of breath and generalized weakness. Said this began approximately 3-4 days ago is continue to get worse. He actually normally takes Brillenta for his blood thinner as patient has had about 5 stents. Last time he was stented they said that he coded twice on the catheter table and did not recommend catheterization again unless absolutely needed according to family. Says chest pain is not his normal ACS chest pain he said feel it more of a COPD exacerbation. Does have COPD does smoke does not have oxygen at home but does have nebulizers at home. Said he has been using is not feeling better. He said his body feels weak. He has been off brillenta for 2 days secondary to expose receiving a procedure for sciatica today. They are unable to do the procedure secondary to his chest pain and weakness. Patient otherwise has no other complaint this time he does not know any fevers, cough congestion. Does have history of CHF but is not on any Lasix. Severity scale (1-10): 6 - Related Data Home Medications Medication Instructions Recorded Confirmed Calcium Carbonate [Calcium] 500 mg PO DAILY 12/17/15 01/05/17 Gabapentin [Neurontin] 600 mg PO TID 12/17/15 01/05/17 Potassium 99 mg PO DAILY 12/17/15 01/05/17 Simvastatin [Zocor] 80 mg PO HS 12/17/15 01/05/17 Budesonide/Formoterol 160/4.5 2 puff IH BIDR 12/18/15 01/05/17 [Symbicort 160/4.5] Nitroglycerin [Nitrostat] 0.4 mg SL AD PRN 01/05/17 01/05/17 Ticagrelor [Brilinta] 90 mg PO BID 01/05/17 01/05/17 clonazePAM [Klonopin] 1 mg PO TID 01/05/17 01/05/17 Previous Rx's Medication Instructions Recorded Aspirin 81 mg PO DAILY #30 tab.chew 12/18/15 Ipratropium/Albuterol Neb [Duoneb] 3 ml IH Q6H PRN #100 inhsol 12/18/15 levoFLOXacin [Levaquin] 500 mg PO DAILY #10 tablet 01/09/17 Atenolol [Tenormin] 12.5 mg PO DAILY #0 01/10/17 Atenolol [Tenormin] 12.5 mg PO DAILY #15 tab 01/10/17 OxyCODONE/APAP 10/325 [Percocet 1 each PO Q6H PRN #30 tab 01/10/17 10/325 MG] Allergies Allergy/AdvReac Type Severity Reaction Status Date / Time morphine AdvReac See Verified 12/17/15 18:47 Comments All systems ED: reviewed and negative except as stated. Review of Systems: As Per HPI Chest Pain PMH - Past Medical History Medical history: Reports: arthritis, CHF, COPD, coronary artery disease, hyperlipidemia, hypertension, myocardial infarction Surgical history: Reports: angioplasty/stent, orthopedic, other (back surgery) Psychiatric history: Reports: anxiety, panic disorder, PTSD - Social History Smoking Status: Current every day smoker Alcohol use: Reports: none Drug use: Reports: none Physical Exam - General General appearance: alert, in no apparent distress - Head Head exam: atraumatic, normocephalic, normal inspection - Eye Eye exam: Present: normal appearance, PERRL, EOMI - ENT ENT exam: normal exam, normal oropharynx, mucous membranes moist - Neck Neck exam: Present: normal inspection, full ROM, trachea midline - Chest Chest inspection: Present: normal inspection, symmetric chest wall rise - Respiratory Respiratory exam: Present: normal lung sounds bilaterally, wheezes (Wheezes bilaterally special in the bases.) - Cardiovascular Cardiovascular exam: Present: regular rate, normal rhythm, normal heart sounds - Abdominal Exam Abdominal exam: Present: soft, Non-Tender, normal bowel sounds. Absent: tenderness, distention, guarding, rebound, rigidity - Extremities Exam Extremities exam: Present: normal inspection, full ROM. Absent: tenderness, pedal edema - Back Exam Back exam: Present: normal inspection, full ROM. Absent: tenderness - Neurological Exam Neurological exam: Present: alert, oriented X3 - Skin Skin exam: Present: warm, dry, intact, normal color Course Vital Signs Temperature 97.5 F L 12/01/18 14:59 Pulse Rate 55 12/01/18 14:59 Respiratory Rate 16 12/01/18 14:59 Blood Pressure 148/54 12/01/18 14:59 O2 Sat by Pulse Oximetry 97 12/01/18 14:59 Temperature 97.5 F L 12/01/18 14:59 Pulse Rate 55 12/01/18 14:59 Respiratory Rate 16 12/01/18 14:59 Blood Pressure 148/54 12/01/18 14:59 O2 Sat by Pulse Oximetry 97 12/01/18 14:59 Oxygen Delivery Oxygen Delivery Room Air Chest Pain - MDM Narrative Medical decision making narrative: Patient's troponin came back negative EKG had no acute findings. Chest x-ray did not have any acute findings but due to patient's symptoms and clinically I feel he is having COPD exacerbation. Did give him steroids we will treat him with ceftriaxone and azithromycin for possible secondary pneumonia. Patient did not meet any Sirs criteria. Patient did receive aspirin while here in the emergency department. Patient's troponin was negative. Patient did have bilateral pedal edema most likely secondary to CHF not being on Lasix he did not seem to be hypervolemic was actually seemed to be hypovolemic and needed fluids we did give him 500 mL IV bolus of fluids to help with that. Patient did receiv e bilateral DVT studies to rule out DVTs these were negative. I do not think the patient's symptoms are secondary to pulmonary embolism is why that was not done in the DVT study was negative. Patient is accepted to the hospitalist service. I spoke with Dr. Jose who agreed to accept the patient for patient is admitted in stable condition. Chest X-Ray 12/01/18 14:57 IMPRESSION: No radiographic evidence of acute cardiopulmonary disease. D/ / Tello Bolaños / Tello Bolaños Interpreting Provider: Tello Bolaños - Medical Records Medical records reviewed: Yes I reviewed the patient's medical records. - Lab Data Lab results reviewed: Yes I reviewed the patient's lab results. Result diagrams: 12/01/18 15:27 12/01/18 15:27 Lab Results 12/01/18 12/01/18 12/01/18 Range/Units 15:27 15:27 15:27 WBC 15.2 H (4.3-11.1) K/mcL RBC 4.37 (4.19-5.50) M/mcL Hgb 14.7 (12.9-16.9) g/dL Hct 43.7 (37.5-50.1) % MCV 100.0 (83.0-100.0) fL MCH 33.6 H (28.0-33.3) pg MCHC 33.6 (31.6-35.5) g/dL RDW 15.1 H (11.5-14.5) % Plt Count 242 (140-400) K/mcL MPV 11.5 (9.4-12.4) fL Immature Gran % 1.0 (0-4) % Seg Neutrophils % 74.3 % Lymphocytes % 18.6 % Monocytes % 5.2 % Eosinophils % 0.7 % Basophils % 0.2 % Neutrophils # 11.3 H (1.6-8.9) K/mcL Lymphocytes # 2.8 (0.6-4.6) K/mcL Monocytes # 0.8 (0.0-1.3) K/mcL Eosinophils # 0.1 (0.0-0.6) K/mcL Basophils # 0.0 (0.0-0.2) K/mcL Sodium 139 (136-145) mEq/L Potassium 4.4 (3.5-5.1) mEq/L Chloride 103 (98-107) mEq/L Carbon Dioxide 27 (23-29) mEq/L BUN 29 H (8-23) mg/dL Creatinine 0.65 L (0.70-1.30) mg/dL Est GFR ( Amer) > 60 (> 60) Est GFR (Non-Af Amer) > 60 (> 60) BUN/Creatinine Ratio 45 H (6-26) Glucose 121 H (70-105) mg/dL Calculated Osmolality 295 (280-300) Calcium 9.5 (8.6-10.3) mg/dL Troponin I < 0.03 (< 0.04) ng/mL B-Natriuretic Peptide 210 H (Less than 100) pg/mL - Radiology Data Radiology results reviewed: Yes I reviewed the patient's radiology results. - EKG Data EKG attestation: Yes I reviewed and interpreted this EKG. EKG results narrative: EKG done at 1459 review myself and the attending shows sinus rhythm at a rate of 58, MD interval 150, QRS 131, QTC 440. His no acute ST changes no acute T-wave changes no other signs of ischemia. No signs of hypertrophy, heart rate, heart block. EKG unchanged when compared with old one done 12/17/15 Heart Score - Score History: Moderately Suspicious EKG: Non Specific repolarisation Disturbance Age: Greater than 65 Risk Factors: Equal/Greater than 3 risk factor or history of atherosclerotic disease Troponin: Less than normal limit HEART Score Total: 6 Attestation Statement - Attestation Attestation: Resident Attestation: I examined this patient and my medical decision making was reviewed with the Resident Physician. I agree with the documented findings, disposition and treatment plan as described except to the extent set forth below. We independently had [id number] contact with the patient.EKG reviewed with resident physician. Agree with documentation. Patient presented for evaluation of generalized weakness. Patient with a history of COPD. Patient was treated for bronchitis proximal my 3 weeks ago. Patient with worsening cough and fatigue. Patient feels he is too weak to cough things up at this time. The patient will undergo further evaluation for possible pneumonia as well as further evaluation of underlying ACS as he has a left-sided dullness that feels different than previous heart attacks but is present. Patient with moderate wheezing throughout. No significant increased work of breathing. Concern for left-sided pneumonia. Elevated white blood cell count. Rhonchi. Cough. Weakness.
[2018-12-01] MEDS ORDERED: Ipratropium/Albuterol Neb 3 ML IH ONE (16:42)
[2018-12-01] MEDS ORDERED: Ipratropium/Albuterol Neb 3 ML IH PRN (17:19)
[2018-12-01] MEDS ORDERED: Nitroglycerin 0.4 MG TAB.SUBL SL PRN (17:19)
--- NOTE | 2018-12-01 17:34 | Internal Med History&Physical ---
Date of Encounter: 12/01/18 Time of Encounter: 17:24 Internal Medicine - H&P: HPI Chief complaint: chest pain Admitted From: Home Plans for Post Hospital Care: Home History of present illness: Mr. Perez is a 73 year old male who has a history of COPD CAD s/p stents, CHF, hypertension, hyperlipidemia, smoker presenting emergency room for chest pain , SOB, and the generalized weakness. Patient stated that his chest pain started a few days ago, is located to the mid of chest, dull, 4 out of 10 constant nothing makes it worse or better. He also has productive cough on and off for few weeks from COPD, he smokes half pack a day, he denies wheezing and fever or chills. Patient also noticed that her bilateral ankle swelling for 1 week, and he feels extremely tired and generalized weakness. Otherwise he denies fever or chills no nausea vomiting diarrhea constipation. In the emergency room, lab shows elevated white cell counts, chest x-ray is negative for infection, chemistry 7 is unremarkable, first troponin is negative, BNP 210 he is on room air, satting 97%. Patient is going to be admitted for chest pain workup possible COPD exacerbation and a CHF exacerbation. Past Med Surg Social Fam HX - Past Medical History Medical history: arthritis, CHF, COPD, coronary artery disease, hyperlipidemia, hypertension, myocardial infarction Psychiatric history: anxiety, panic disorder, PTSD - Past Surgical History Surgical History: angioplasty/stent, orthopedic, other (back surgery) Additional surgical history: back surgery - Social History Smoking Status: Current every day smoker Smokeless Tobacco Status: No Alcohol use: none Drug use: none - Family History Father Living Status: Mother Adopted: No Family Member Ethnicity: Non- Living Status: Hx Family Cardiac Disorders: Yes Hx Family Cancer: Yes Internal Medicine - H&P: Meds Calcium Carbonate [Calcium] 500 mg PO DAILY 12/17/15 [History] Gabapentin [Neurontin] 600 mg PO TID 12/17/15 [History] Potassium 99 mg PO DAILY 12/17/15 [History] Simvastatin [Zocor] 80 mg PO HS 12/17/15 [History] Aspirin 81 mg PO DAILY #30 tab.chew 12/18/15 [Rx] Budesonide/Formoterol 160/4.5 [Symbicort 160/4.5] 2 puff IH BIDR 12/18/15 [History] Ipratropium/Albuterol Neb [Duoneb] 3 ml IH Q6H PRN #100 inhsol 12/18/15 [Rx] Nitroglycerin [Nitrostat] 0.4 mg SL AD PRN 01/05/17 [History] Ticagrelor [Brilinta] 90 mg PO BID 01/05/17 [History] clonazePAM [Klonopin] 1 mg PO TID 01/05/17 [History] levoFLOXacin [Levaquin] 500 mg PO DAILY #10 tablet 01/09/17 [Rx] Atenolol [Tenormin] 12.5 mg PO DAILY #0 01/10/17 [Rx] Atenolol [Tenormin] 12.5 mg PO DAILY #15 tab 01/10/17 [Rx] OxyCODONE/APAP 10/325 [Percocet 10/325 MG] 1 each PO Q6H PRN #30 tab 01/10/17 [Rx] Allergy/AdvReac Type Severity Reaction Status Date / Time morphine AdvReac See Verified 12/17/15 18:47 Comments All Systems PM: A 10-system review of systems was performed and is negative for pertinent findings except as documented above in the HPI. - Constitutional Vitals: Temp Pulse Resp BP Pulse Ox 97.5 F L 55 16 148/54 97 12/01/18 14:59 12/01/18 14:59 12/01/18 14:59 12/01/18 14:59 12/01/18 14:59 General appearance: Present: A&O X 3, pleasant Exam: CONSTITUTIONAL: Patient appears as an age appropriate male well developed, in no acute distress. EYES Clear sclerae, bilateral pupils are equal, reactive to light and accommodation. Extraocular movements are intact RESPIRATORY: No accessory muscle use, bilateral reduced breath sounds to auscultation, no wheezing, no crackles/rales. CARDIOVASCULAR: Regular heart rate, normal S1 and S2, no murmurs GASTROINTESTINAL: bowel sounds present, soft, no tenderness. No hepatosplenomegaly. No bilateral CVA tenderness MUSCULOSKELETAL: Joints in normal range of motion, no clubbing, ++ edema to both ankles, no cyanosis. Bilateral peripheral pulses 2+ LYMPHATIC no lymphadenopathy in neck, groin and axilla bilaterally, no thyromegaly. NEUROLOGIC: CN II to XII are grossly intact, no focal neurological deficit. Deep tendon reflexes 2+ bilaterally. Normal light touch sensation to upper and lower extremity PSYCHIATRIC: Oriented x3, with good insight, mood is euthymic. No hallucinations or delusions. SKIN: Skin warm and dry, no rashes, no open wound. Internal Med - H&P Results - Labs CBC & Chem 7: 12/01/18 15:27 12/01/18 15:27 Labs: Short CBC 12/01/18 Range/Units 15:27 WBC 15.2 H (4.3-11.1) K/mcL Hgb 14.7 (12.9-16.9) g/dL Hct 43.7 (37.5-50.1) % Plt Count 242 (140-400) K/mcL Neutrophils # 11.3 H (1.6-8.9) K/mcL BMP 12/01/18 15:27 Sodium 139 Potassium 4.4 Chloride 103 Carbon Dioxide 27 BUN 29 H Creatinine 0.65 L Glucose 121 H Calcium 9.5 Cardiac Enzymes 12/01/18 Range/Units 15:27 Troponin I < 0.03 (< 0.04) ng/mL - Impressions ITS Impressions Chest X-Ray 12/01/18 14:57 IMPRESSION: No radiographic evidence of acute cardiopulmonary disease. D/ / Tello Bolaños / Tello Bolaños Interpreting Provider: Tello Bolaños - Summary of Assessment and Plan Summary of Assessment and Plan: Mr. Perez is a 73 year old male who has a history of COPD CAD s/p stents, CHF, hypertension, hyperlipidemia, smoker presenting emergency room for chest pain , SOB, and the generalized weakness. Patient stated that his chest pain started a few days ago, In the emergency room, lab shows elevated white cell counts, chest x-ray is negative for infection, chemistry 7 is unremarkable, first troponin is negative, BNP 210 he is on room air, satting 97%. Patient is going to be admitted for chest pain workup possible COPD exacerbation and a CHF exacerbation. 1. chest pain insetting of CAD s/p stent, will follow up trop, check lipid, D- dimer, TTE, stress test am 2. possible mild COPD exacerbation, oral prednisone, ATb and Nubs prn 3. b/l leg swelling, duplex is negaitve for DVT, check TTE 4. CAD s/p stent, conitneu ASa brilinta, statin, BB ACEI 5. possible chronic diastolic CHF EF was 50% in 2017 6. tobacco dependent 7. chronic back pain, resume home pain meds, check drug screen 8.Hypertension and hypolipidemia 9. weakness, We will check lipids and liver function TSH, consult pT and OT, check UA for elevated WBC 10. GI and DVt prophylasix - Time Spent With Patient Total time spent is greater than 50% in coordination of care (as documented) at patient's floor/unit and/or counseling patient:
[2018-12-01] MEDS ORDERED: Ondansetron 4 MG/2 ML VIAL IVP PRN (17:39)
[2018-12-01] MEDS ORDERED: Naloxone 0.4 MG/ML INJ IVP PRN (17:39)
[2018-12-01] MEDS: *HR* Heparin 5,000 UNIT/ML VIAL SQ SCH ×2 (20:06→21:48)
[2018-12-01] MEDS: Budesonide/Formoterol 160/4.5 1 PUFF INH IH SCH (21:25)
[2018-12-01] MEDS: *HR* Ticagrelor 90 MG TABLET PO SCH (21:44)
[2018-12-01] MEDS: Gabapentin 300 MG CAPSULE PO SCH (21:44)
[2018-12-01] MEDS: Famotidine 20 MG TABLET PO SCH (21:44)
[2018-12-01] MEDS: clonazePAM 1 MG TABLET PO SCH (21:44)
[2018-12-01] MEDS: *HR* OxyCODONE/APAP 10/325 TABLET PO PRN (21:45)
[2018-12-01 22:09] LABS: Amphetamine Screen,Urine Negative ng/mL (Cutoff=1000); Barbiturate Screen,Urine Negative ng/mL (Cutoff=200); Benzodiazepines Screen,Urine Negative ng/mL (Cutoff=200); Cannabinoid Screen,Urine Negative ng/mL (Cutoff = 50); Cocaine Screen,Urine Negative ng/mL (Cutoff= 300); Opiate Screen,Urine Negative ng/mL (Cutoff=300); Phencyclidine Screen,Urine Negative ng/mL (Cutoff=25)
[2018-12-01 23:15] LABS: Bilirubin,Urine Negative (Negative); Blood,Urine Negative (Negative); Clarity,Urine Clear (Clear); Color,Urine Yellow (Yellow); Glucose,Urine (UA) Normal (Normal); Ketones,Urine Negative (Negative); Leukocyte Esterase,Urine Negative (Negative); Nitrite,Urine Negative (Negative); PH,Urine 6.5 pH Units (5.0-8.0); Protein,Urine Negative (Neg-Trace); Specific Gravity,Urine 1.012 (1.010-1.025); Urobilinogen,Urine Normal (Normal)
[2018-12-02] MEDS: *HR* Heparin 5,000 UNIT/ML VIAL SQ SCH (05:19)
[2018-12-02 05:20] LABS: Basophils % 0.2 %; Hematocrit 43.6 % (37.5-50.1); Hemoglobin 14.8 g/dL (12.9-16.9); Lymphocytes # 1.1 K/mcL (0.6-4.6); Lymphocytes % 9.9 %; Mean Corpuscular HGB Conc 33.9 g/dL (31.6-35.5); Mean Corpuscular Volume 100.2 fL (83.0-100.0); Mean Platelet Volume 11.8 fL (9.4-12.4); Monocytes # 0.5 K/mcL (0.0-1.3); Monocytes % 4.3 %; Neutrophils # 9.4 K/mcL (1.6-8.9); Platelet Count 240 K/mcL (140-400); Red Blood Count 4.35 M/mcL (4.19-5.50); Segmented Neutrophils % 83.6 %; White Blood Count 11.2 K/mcL (4.3-11.1)
[2018-12-02 05:41] LABS: Alanine Aminotransferase 11 Units/L (7-52); Albumin 3.4 g/dL (3.5-5.7); Albumin/Globulin Ratio 1.5 (1.1-2.2); Alkaline Phosphatase 55 Units/L (34-104); Aspartate Amino Transferase 10 Units/L (13-39); BUN/Creatinine Ratio 36 (6-26); Bilirubin,Direct 0.1 mg/dL (0.0-0.2); Bilirubin,Indirect 0.3 mg/dL (0.0-1.2); Bilirubin,Total 0.4 mg/dL (0.3-1.0); Blood Urea Nitrogen 31 mg/dL (8-23); Carbon Dioxide 24 mEq/L (23-29); Chloride 104 mEq/L (98-107); Chol/HDL Ratio 2.4 (0-4.9); Cholesterol 144 mg/dL (< 200); Globulin 2.3 g/dL (2.4-3.5); Glucose 272 mg/dL (70-105); HDL Cholesterol 59 mg/dL (40-59); LDL Cholesterol,Calculated 71 mg/dL (0-99); Magnesium 1.9 mg/dL (1.6-2.6); Osmolality,Calculated 300 (280-300); Potassium 4.1 mEq/L (3.5-5.1); Sodium 137 mEq/L (136-145); Total Protein 5.7 g/dL (6.4-8.9); Triglycerides 69 mg/dL (< 150); eGFR For African Americans > 60 (> 60); eGFR For Non-African Americans > 60 (> 60)
[2018-12-02] MEDS: *HR* OxyCODONE/APAP 10/325 TABLET PO PRN (05:51)
[2018-12-02] MEDS ORDERED: Furosemide 20 MG/2 ML VIAL IVP ONE (06:06)
[2018-12-02] MEDS ORDERED: Regadenoson 0.4 MG/5 ML SYRINGE IVP ONE (06:34)
[2018-12-02 06:35] VITALS: BP 176/55
[2018-12-02] MEDS: Budesonide/Formoterol 160/4.5 1 PUFF INH IH SCH (07:25)
[2018-12-02] MEDS ORDERED: predniSONE 20 MG TABLET PO SCH (09:00)
[2018-12-02] MEDS ORDERED: Azithromycin 250 MG TABLET PO SCH (09:00)
[2018-12-02] MEDS ORDERED: Aspirin 81 MG TAB.CHEW PO SCH (09:00)
[2018-12-02] MEDS: clonazePAM 1 MG TABLET PO SCH (09:15)
[2018-12-02] MEDS: Gabapentin 300 MG CAPSULE PO SCH (09:15)
[2018-12-02] MEDS: *HR* Ticagrelor 90 MG TABLET PO SCH (09:15)
[2018-12-02] MEDS: Famotidine 20 MG TABLET PO SCH (09:15)
--- NOTE | 2018-12-02 13:50 | Electrocardiograph Report ---
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
--- NOTE | 2018-12-02 18:28 | Discharge Summary ---
Date of Encounter: 12/02/18 Time of Encounter: 09:00 Hospital course: Mr. Perez is a 73 year old male patient presented with chest pain was to undergo a cardiac stress test this a.m. however according to nursing staff patient went outside during the night and was smoking stress test was canceled due to nicotin e use. Reported per nursing staff the patient is leaving AGAINST MEDICAL ADVICE patient had left the floor prior to my arrival and I was unable to assess the patient - Time Spent with Patient Total time spent providing and/or coordinating discharge services: - Discharge Medications Prescriptions: No Action Gabapentin [Neurontin] 1,200 mg PO Q8H Budesonide/Formoterol 160/4.5 [Symbicort 160/4.5] 2 puff IH BIDR Aspirin 81 mg PO DAILY #30 tab.chew Ticagrelor [Brilinta] 90 mg PO BID Nitroglycerin [Nitrostat] 0.4 mg SL Q5MIN PRN PRN Reason: Chest Pain Albuterol Neb [Proventil Neb] 2.5 mg IH Q6HR PRN PRN Reason: Shortness Of Breath Albuterol Sulfate [Albuterol Inhaler] 2 puff IH Q4HR Atenolol [Tenormin] 25 mg PO DAILY Atorvastatin [Lipitor] 40 mg PO HS Lisinopril [Zestril] 10 mg PO DAILY OxyCODONE/APAP 10/325 [Percocet 10/325 MG] 1 each PO Q6HR PRN PRN Reason: Pain Tamsulosin HCl [Flomax] 0.4 mg PO HS Tiotropium [Spiriva] 18 mcg IH 0700 Home Medications: Gabapentin [Neurontin] 1,200 mg PO Q8H 12/17/15 [History] Aspirin 81 mg PO DAILY #30 tab.chew 12/18/15 [Rx] Budesonide/Formoterol 160/4.5 [Symbicort 160/4.5] 2 puff IH BIDR 12/18/15 [History] Nitroglycerin [Nitrostat] 0.4 mg SL Q5MIN PRN 01/05/17 [History] Ticagrelor [Brilinta] 90 mg PO BID 01/05/17 [History] Albuterol Neb [Proventil Neb] 2.5 mg IH Q6HR PRN 12/01/18 [History] Albuterol Sulfate [Albuterol Inhaler] 2 puff IH Q4HR 12/01/18 [History] Atenolol [Tenormin] 25 mg PO DAILY 12/01/18 [History] Atorvastatin [Lipitor] 40 mg PO HS 12/01/18 [History] Lisinopril [Zestril] 10 mg PO DAILY 12/01/18 [History] OxyCODONE/APAP 10/325 [Percocet 10/325 MG] 1 each PO Q6HR PRN 12/01/18 [History] Tamsulosin HCl [Flomax] 0.4 mg PO HS 12/01/18 [History] Tiotropium [Spiriva] 18 mcg IH 0700 12/01/18 [History] Allergies/Adverse Reactions: Allergy/AdvReac Type Severity Reaction Status Date / Time morphine AdvReac See Verified 12/17/15 18:47 Comments Date of admission: 12/01/18 17:03 [facility] care physician: [facility] Consults: 12/01/18 17:41 Consult to Occupational Therapy [CONS] Routine Comment: Evaluate, develop and implement POC Reason for Consult: discharge Does patient have active BEDREST order?: No Is patient medically & hemodynamically stable?: Yes Patient assessed for mobility or mobilized this visit?: Yes 12/01/18 17:42 Consult to Physical Therapy [CONS] Routine Comment: Evaluate, develop and implement POC Reason for Consult: discharge Does patient have active BEDREST order?: No Is patient medically & hemodynamically stable?: Yes Patient assessed for mobility or mobilized this visit?: Yes 12/02/18 08:40 Consult to Nurse Navigator [CONS] Routine Comment: CHF, COPD - Constitutional Vitals: Temp Pulse Resp BP Pulse Ox 97.5 F L 60 16 176/55 97 12/02/18 06:34 12/02/18 06:34 12/02/18 07:25 12/02/18 06:34 12/02/18 07:25 General appearance: Present: A&O X 3, pleasant Exam: . - Patient Status Disposition: Left Against Medical Advice Condition: Fair - Discharge Instructions Follow Up With: [facility] [Primary Care Provider[facility] -
== END 2018-12-02 10:39 | disposition left against medical advice (07) ==
LOC: 3BNU 14:48 → EMEROOARM 14:48 → SUATTDRO 17:03 → 3BNU 17:57
PROVIDERS: ADMIT Internal Medicine Nephrology; ATTEND Hospitalist